=== PATIENT | female | born 1985 | race Caucasian/White ===

== ENCOUNTER → 2018-05-14 | Outpatient (CLI) | payer MEDICAID ==
--- NOTE | 2018-05-19 21:54 | HM ---
HOLTER MONITOR REPORT DATE OF SERVICE: May 14, 2018. INDICATION: Chest palpitation. REFERRING: Dr. Stein. CLINICAL INFORMATION: The patient was monitored for 24 hours. The baseline rhythm appeared to be a sinus mechanism with a minimum heart rate of 66 beats per minute, max heart rate 157 beats per minute and average heart rate of 89 beats per minute. Ventricular ectopic events were presented in less than 1% of the total beats count. Supraventricular ectopic events were present also in 1% of the total beats count. No evidence of any advanced AV block. No evidence of any sinus pause or sinus arrest. The patient had 1 period of sinus tachycardia with heart rate of 150 beats per minute. CONCLUSION: 1. Sinus rhythm as a baseline mechanism. 2. Rare ventricular ectopic events. 3. Rare supraventricular ectopic events. 4. There is no evidence of any tachy or bradyarrhythmia noted. 5. There is no evidence of any advanced atrioventricular block noted. 6. There is no evidence of any sinus pause or sinus arrest. 7. The patient did have episodes of sinus tachycardia. 8. The patient did report multiple symptoms, including shortness of breath, dizziness, lightheadedness, chest pressure, as well as aching in the chest and the symptoms were associated with normal sinus mechanism as well as premature ventricular contractions. MMODL / IJN: [id number] /
== END | disposition home or self-care (01) ==
LOC: MERGE 05-12 12:30 → RADECHMAIN 12:38
PROVIDERS: ATTEND Obstetrics & Gynecology Obstetrics
DX: R06.02 Shortness of breath (principal); R00.0 Tachycardia, unspecified; R42 Dizziness and giddiness; R51 Headache; R07.89 Other chest pain
CPT/HCPCS: 93225; 93226

== ENCOUNTER 2018-05-28 21:15 | Outpatient (CLI) | payer MEDICAID ==
[2018-05-28 21:40] LABS: Glucose,Whole Blood 93 mg/dL (75-99)
[2018-05-28] MEDS ORDERED: ACETAMINOPHEN TAB 500 MG TAB PO STA (22:40)
[2018-05-28 23:24] VITALS: BP 144/77; PULSE 100; RESP 16; TEMP 98.4
--- NOTE | 2018-06-19 08:29 | P.MSEPDOC ---
Presenting Problems - Arrival Data Date of Arrival on Unit: 05/28/18 Time of Arrival on Unit: 21:25 Mode of Transport: Wheelchair - Complaint OB-Reason for Admission/Chief Complaint: Acute Nausea/Vomiting, Headache, Dizziness Comment: Pt presents to triage after calling Dr Willis with complaints of headache. migrane like, Nausea, extreme dizziness and generally not feeling well off and on a. couple of months but much worse now Medical History - Information : 3 Para: 2 Term: 11 : 1 Abortions: Spontaneous or Elective: 0 Number of Living Children: 2 - Gestational Age Gestational Age by RUTH (wks/days): 31 Weeks and 1 Days - History Complications: GDM, Prior Review of Systems - Review of Systems Constitutional: No problems Breast: No problems ENT: No problems Cardiovascular: No problems Respiratory: No problems Gastrointestinal: No problems Genitourinary: No problems Musculoskeletal: No problems Neurological: Dizziness Skin: No problems Comment: facial flushing noted. pt c/o dizziness and headache that has been ongoing for several weeks. was started on procardia yesterday due to contractions while working. blood sugar 93 at this time. states headache is better now at 4 but was as high as 8 earlier. Vital Signs - Temperature Temperature: 98.4 F Temperature Source: Oral - Pulse Right Radial Pulse Rate: 100 Pulse Assessment Method: Automatic Cuff - Respirations Respiratory Rate: 16 Oxygen Delivery Method: Room Air - Blood Pressure Right Arm Blood Pressure: 144/77 Blood Pressure Mean: 99 Blood Pressure Source: Automatic Cuff - Comment Vital Signs Comment: initial bp while pt teary and upset. repeated as follows 127 /61 mmHg. 05/28/2018 21:37 P: 90 bpm. 05/28/2018 21:38 accucheck 93. 21:52 BP: 118 /57 mmHg. BP: 113 /63 mmHg. 05/28/2018 22:09 P: 86 bpm. 05/28/2018 22:22 BP: 116 /61 mmHg. 05/28/2018 22:22 P: 93 bpm. 2017 22:37 BP: 106 /59 mmHg Medical Screen Scoring (Pre) - Cervical Exam Dilation: 0 cm = 0 - Uterine Contractions Frequency: > 5 minutes apart = 1 Duration: N/A Intensity: N/A - Maternal Vital Signs Maternal Temperature: N/A Maternal Blood Pressure: N/A Signs of Preeclampsia: Headache = 1, Nausea/Vomiting = 1 Maternal Respirations: N/A - Pain Assessment Pain Location and Character: Head Pain Scale Used: Numeric (1 - 10) Pain Intensity: 4 Pain Management Goal: 0 Pain Description: Aching Pain Frequency: off and on several days Pain Behavior: Crying - Maternal Trauma Maternal Trauma: N/A - Assessment Baseline FHR: 135 Heart Rate - NICHD Category: Category I (Normal) = 0 NST: Reactive Position: N/A - Total Score Total Score (Pre): 3 - Level of Risk Level of Risk: Low (0-5) Physician Notification (Pre) - Physician Notified Physician Notified Date: 05/28/18 Physician Notified Time: 22:00 Physician/Practitioner Notifed:: Dr Willis New Order Received: Yes (check cervix discharge if not dialated.) - Notification Comment Comment: cervix closed. dr willis updated again after vag exam due to increased mild irregular contractions noted. order to continue with discharge after pt takes tylenol and drinks some water Disposition - Disposition OB Disposition: Discharge to home, Written follow up instructions reviewed Discharge Date: 05/28/18 Discharge Time: 11:25 I agree with the RN Medical Screening Exam: Yes Risk & Benefit of care provided described in d/c instruction: Yes Diagnosis: RELATED CONDITIONS, UNSPECIFIED, THIRD TRIMESTER
== END 2018-05-28 23:25 | disposition home or self-care (01) ==
LOC: FBPOP 21:15
PROVIDERS: ATTEND Obstetrics & Gynecology
DX: O26.93 Pregnancy related conditions, unspecified, third trimester (principal); Z3A.31 31 weeks gestation of pregnancy
CPT/HCPCS: 59025; 99213

== ENCOUNTER 2018-07-22 05:54 | Inpatient (IN) | payer MEDICAID ==
[2018-07-22] MEDS ORDERED: METHYLERGONOVINE 0.2 MG/ML 1 ML AMP IM PRN (06:09)
[2018-07-22] MEDS ORDERED: CARBOPROST TROMETHAMINE 250 MCG/ML 1 ML AMP IM PRN (06:09)
[2018-07-22] MEDS ORDERED: OXYTOCIN 10 UNIT/ML 1 ML VIAL IM PRN (06:09)
[2018-07-22] MEDS ORDERED: TERBUTALINE 1 MG/ML VIAL SQ PRN (06:09)
[2018-07-22] MEDS ORDERED: LIDOCAINE 0.5% (PF) 5 MG/ML (50 ML SDV) SQ PRN (06:09)
[2018-07-22] MEDS ORDERED: OXYTOCIN 20 UNITS/1000 ML NS 1,000 ML IV SCH ×2 (06:15→17:00)
[2018-07-22 06:29] VITALS: BMI 28.8
[2018-07-22] MEDS: LACTATED RINGERS 1,000 ML IV SCH ×3 (06:35→22:19)
[2018-07-22 06:36] LABS: Basophils % (A) 0 %; Eosinophils % (A) 0 %; HCT 38.9 % (34.0-46.0); HGB 12.9 gm/dL (11.4-16.0); Lymphocytes # (A) 1.5 k/uL (1.0-4.8); Lymphocytes % (A) 17 %; MCH 27.8 pg (25.0-35.0); MCHC 33.1 g/dL (31.0-37.0); Mean Platelet Volume 6.4; Monocytes # (A) 0.5 k/uL (0-1.0); Monocytes % (A) 6 %; Neutrophils # (A) 6.6 k/uL (1.3-7.7); Neutrophils % (A) 75 %; Platelet Count 260 k/uL (150-450); RBC 4.63 m/uL (3.80-5.40); RDW 13.7 % (11.5-15.5); WBC 8.8 k/uL (3.8-10.6)
[2018-07-22 06:40] LABS: Glucose,Whole Blood 97 mg/dL (75-99)
--- NOTE | 2018-07-22 08:25 | P.HPOB ---
History of Present Illness H&P Date: 07/22/18 Chief Complaint: IUP at 39-0/7 weeks, gestational diabetes This is a 33-year-old 3 para 2001 at 39-0/7 weeks that presents for elective induction of labor. is incompetent by gestational diabetes with good blood sugar control. Patient notes occasional contractions this morning denies vaginal bleeding and notes good movement. She denies concerns. Next On blood work Blood type A+, rubella immune, RPR nonreactive, hepatitis B surface antigen negative, HIV negative, group beta strep negative. She has been receiving routine care with myself since first trimester. Review of Systems Constitutional: Denies chills, Denies fatigue, Denies fever Cardiovascular: Reports leg edema, Denies chest pain Respiratory: Denies cough, Denies dyspnea Gastrointestinal: Denies constipation, Denies diarrhea Genitourinary: Reports Past Medical History Additional Past Medical History / Comment(s): Gestational Diabetes, meningitis in 2003 History of Any Multi-Drug Resistant Organisms: None Reported Past Surgical History: No Surgical Hx Reported Past Anesthesia/Blood Transfusion Reactions: No Reported Reaction Past Psychological History: No Psychological Hx Reported Smoking Status: Never smoker Past Alcohol Use History: None Reported Past Drug Use History: None Reported - Past Family History Mother Family Medical History: No Reported History Medications and Allergies Home Medications Medication Instructions Recorded Confirmed Type 78/Iron/Folate 1/Dha 1 tab PO DAILY 05/28/18 07/22/18 History [Prenate Dha Softgel] Allergies Allergy/AdvReac Type Severity Reaction Status Date / Time No Known Allergies Allergy Verified 07/22/18 06:08 Exam Osteopathic Statement: *. No significant issues noted on an osteopathic structural exam other than those noted in the History and Physical/Consult. Vital Signs Temp Pulse Resp BP 07/22/18 06:03 97.7 F 89 16 124/71 Intake and Output 07/21/18 07/22/18 07/22/18 22:59 06:59 14:59 Other: Weight 76.204 kg - OBG Physical Exam Abdomen: Gravid and appropriate for gestational age Cervix: 3/50/-2 amniotomy performed and clear fluid was obtained. Uterus: enlarged Anus/Rectum: normal perianal skin Results Result Diagrams: 07/22/18 06:25 Assessment and Plan (1) Term Current Visit: Yes Status: Acute Code(s): Z34.80 - ENCOUNTER FOR SUPRVSN OF NORMAL , UNSP TRIMESTER SNOMED Code(s): 22065198 (2) Gestational diabetes Current Visit: Yes Status: Acute Code(s): O24.419 - GESTATIONAL DIABETES MELLITUS IN , UNSP CONTROL SNOMED Code(s): 29946008 Plan: We'll admit to labor and delivery for Pitocin induction of labor. Patient declines epidural at this time. Anticipate spontaneous vaginal delivery later today.
[2018-07-22 13:59] LABS: Hemoglobin A1C 4.9 % (4.0-6.0)
[2018-07-22] MEDS ORDERED: diphenhydrAMINE 50 MG/ML 1 ML VIAL IVP PRN ×2 (16:59)
[2018-07-22] MEDS ORDERED: HYDROCORTISONE 2.5% RECTAL CREAM 30 GM TUBE RECTAL PRN (16:59)
[2018-07-22] MEDS ORDERED: diphenhydrAMINE 50 MG CAP PO PRN (16:59)
[2018-07-22] MEDS ORDERED: SIMETHICONE 80 MG CHEWABLE PO PRN (16:59)
[2018-07-22] MEDS ORDERED: BENZOCAINE/MENTHOL SPRAY 1 GM/SPRAY AEROSOL TOPICAL PRN (16:59)
[2018-07-22] MEDS ORDERED: LANOLIN CREAM 5 GM TUBE TOPICAL PRN (16:59)
[2018-07-22] MEDS ORDERED: WITCH HAZEL 1 EACH MED..PAD TOPICAL PRN (16:59)
[2018-07-22] MEDS ORDERED: ZOLPIDEM 5 MG TAB PO PRN (16:59)
[2018-07-22] MEDS ORDERED: diphenhydrAMINE 25 MG CAP PO PRN (16:59)
--- NOTE | 2018-07-22 16:59 | P.PROBDLV ---
Vaginal Delivery Note - . Vaginal Delivery Note: This is a 33-year-old 3 para 2001 at 39-0/7 weeks that presented to labor and delivery for elective induction of labor. Patient struggled with pain throughout the and desired induction. She was known gestational diabetic diet controlled. Patient was admitted to labor and delivery and Pitocin induction of labor was begun. Amniotomy was performed and clear fluid was obtained. Patient progressed through labor eventually becoming complete and had a normal spontaneous vaginal delivery of a viable female infant, a loose nuchal cord was noted and the infant was delivered through this cord. time noted to be 1640, weight of 6 lbs. 15 oz. with Apgars of 9 and 9 at one and 5 minutes respectively. The placenta was delivered spontaneously intact with a three-vessel cord. Patient did sustain a first-degree vaginal tear on inspection the patient's vaginal vault. This was repaired in the usual fashion after being injected with lidocaine. A 3-0 Rapide was used for this repair. Patient's uterus was noted to be firm and below the umbilicus after delivery. Bleeding was normal in nature. Estimated blood loss for the delivery was 200 mL. Patient and infant tolerated delivery well and are resting comfortably
[2018-07-22] MEDS ORDERED: ACETAMINOPHEN IV (For NPO) 1,000 MG in EMPTY BAG 1 BAG IVPB STA (17:06)
[2018-07-22] MEDS: SENNOSIDES-DOCUSATE SODIUM 1 EACH TAB PO SCH (20:22)
[2018-07-22] MEDS: IBUPROFEN 600 MG TAB PO PRN (22:52)
[2018-07-23] MEDS: ACETAMINOPHEN TAB 325 MG TAB PO PRN ×3 (04:15→17:58)
[2018-07-23] MEDS: IBUPROFEN 600 MG TAB PO PRN ×2 (06:50→13:43)
[2018-07-23] MEDS: SENNOSIDES-DOCUSATE SODIUM 1 EACH TAB PO SCH (08:00)
--- NOTE | 2018-07-23 08:25 | P.DS ---
Providers Date of admission: 07/22/18 05:54 Expected date of discharge: 07/23/18 Attending physician: Laxmi Stein Primary care physician: Stated None - Discharge Diagnosis(es) (1) Term Current Visit: Yes Status: Acute (2) Gestational diabetes Current Visit: Yes Status: Acute (3) Status post vaginal delivery Current Visit: Yes Status: Acute Hospital Course: This is a 33-year-old 3 para 2001 at 39-0/7 weeks presented yesterday for elective induction of labor. Patient had known gestational diabetes which was well-controlled with diet. Patient was admitted Pitocin induction of labor was begun patient progressed through labor amniotomy was eventually performed yielding clear fluid. Epidural was declined. Patient progressed to complete and had a normal spontaneous vaginal delivery of a viable female Mary, with weight of 6-15 at 1640 with Apgars of 9 and 9 at one and 5 metastases respectively. Patient's course has been uneventful. She is ambulating and voiding without difficulty. She is breast-feeding. She is tolerating a regular diet without nausea or vomiting. She is doing well and wishes discharge home today. Patient Condition at Discharge: Good Plan - Discharge Summary New Discharge Prescriptions: No Action 78/Iron/Folate 1/Dha [Prenate Dha Softgel] 1 tab PO DAILY Discharge Medication List 78/Iron/Folate 1/Dha [Prenate Dha Softgel] 1 tab PO DAILY 05/28/18 [ History] Follow up Appointment(s)/Referral(s): Laxmi Stein DO [Doctor of Osteopathic Medicine] - 4 Weeks Patient Instructions/Handouts: Vaginal Delivery (DC), Vaginal Delivery (GEN) Discharge Disposition: HOME SELF-CARE
[2018-07-23] MEDS ORDERED: PRENATAL VIT-IRON-FOLIC ACID 1 EACH CAP PO SCH (09:00)
[2018-07-23 11:17] VITALS: RESP 18
[2018-07-23 15:53] VITALS: BP 106/97; PULSE 66; TEMP 98
== END 2018-07-23 19:25 | disposition home or self-care (01) | DRG 807 ==
LOC: 4FBP 05:54
PROVIDERS: ADMIT Obstetrics & Gynecology Obstetrics; ATTEND Obstetrics & Gynecology Obstetrics
PROC: 10E0XZZ Delivery of Products of Conception, External Approach (ICD-10-PCS; principal; 2018-07-22)
PROC: 0HQ9XZZ Repair Perineum Skin, External Approach (ICD-10-PCS; 2018-07-22)
PROC: 3E033VJ Introduction of Other Hormone into Peripheral Vein, Percutaneous Approach (ICD-10-PCS; 2018-07-22)
PROC: 10907ZC Drainage of Amniotic Fluid, Therapeutic from Products of Conception, Via Natural or Artificial Opening (ICD-10-PCS; 2018-07-22)
DX: O24.420 Gestational diabetes mellitus in childbirth, diet controlled (principal); Z37.0 Single live birth; O69.81X0 Labor and delivery complicated by cord around neck, without compression, not applicable or unspecified; O70.0 First degree perineal laceration during delivery; Z86.61 Personal history of infections of the central nervous system; Z3A.39 39 weeks gestation of pregnancy
CPT/HCPCS: 83036; 85025; 86850; 86900; 86901

== ENCOUNTER → 2020-10-31 | Outpatient (CLI) | payer MEDICAID ==
--- NOTE | 2020-11-01 11:11 | XR ---
Lateral shoulders HISTORY: Pain 3 views of each shoulder are submitted Bone mineralization, joint spaces and alignment are maintained. No fracture or dislocation. Lung apic es are unremarkable. IMPRESSION: Normal shoulders.
--- NOTE | 2020-11-01 11:14 | XR ---
Bilateral hips HISTORY: Pain 2 views of each hip are submitted. Bone mineralization, joint spaces and alignment are maintained. No fracture or dislocation. IMPRESSION: Normal hips.
--- NOTE | 2020-11-01 11:16 | XR ---
Two-view spine HISTORY: Pain Frontal lateral views of the cervical, thoracic, lumbar spine submitted on a total of 9 images Reversal the normal cervical lordosis is present. Prevertebral soft tissues are normal. Spondylosis i s present at C6-7 with some associated loss of disc height. Scoliotic curvature is S-shaped within th e thoracic lumbar region. Cervical, thoracic, lumbar vertebral bodies show preserved height and bone mineralization. No evident paraspinal mass. IMPRESSION: Mild degenerative disc disease, S-shaped thoracic lumbar scoliosis.
== END | disposition home or self-care (01) ==
LOC: RADXRMAIN 15:05
PROVIDERS: ATTEND Family Medicine
DX: M51.36 Other intervertebral disc degeneration, lumbar region (principal); M41.85 Other forms of scoliosis, thoracolumbar region; M25.551 Pain in right hip; M25.552 Pain in left hip; M25.511 Pain in right shoulder; M25.512 Pain in left shoulder
CPT/HCPCS: 72082; 73521

== ENCOUNTER 2020-11-30 07:48 | Day surgery (SDC) | payer MEDICAID ==
[2020-11-29 09:09] VITALS: BMI 27.4
[~2020-11-30 07:48] MED LIST: LACTATED RINGERS 1,000 ML IV SCH
[2020-11-30 08:25] VITALS: TEMP 97
[2020-11-30] MEDS ORDERED: LIDOCAINE 1% (10MG/ML) FOR IV START INTRADERMA ONE (08:27)
[2020-11-30] MEDS ORDERED: PROPOFOL 10 MG/ML 20 ML VIAL IV ONE (08:59)
[2020-11-30] MEDS ORDERED: LIDOCAINE 1% INJ 10MG/ML (20 ML MDV) ONE (08:59)
[2020-11-30 09:39] VITALS: RESP 16
--- NOTE | 2020-11-30 09:41 | P.PCN ---
Date of Procedure: 11/30/20 Description of Procedure: BRIEF HISTORY: Patient is a 35-year-old female presenting for colonoscopy for evaluation of GI bleed. The patient reports having episodes of rectal bleeding with diarrhea over the past few months. This is improved over the past few weeks with more blood per rectum. She denies any family history of inflammatory bowel disease or colon cancer. No prior episodes of similar complaints. She did have some abdominal cramping in association with her symptoms. PROCEDURE PERFORMED: Colonoscopy with biopsy. PREOPERATIVE DIAGNOSIS: GI bleed, change in bowel habits, blood per rectum. ESTIMATED BLOOD LOSS: Minimal. IV sedation per Anesthesia. PROCEDURE: After informed consent was obtained, the patient, was brought into the endoscopy unit. IV sedation was administered by Anesthesia under continuous monitoring. Digital rectal examination was normal. Initially the Olympus CF-190 flexible video colonoscope was then inserted in the rectum, gradually advanced into the cecum without any difficulty. Careful examination was performed as the scope was gradually being withdrawn. Ileocecal valve and the appendiceal orifice were visualized and appeared normal. Prep was excellent. Mucosa of the cecum, ascending colon, transverse colon, descending colon, sigmoid colon, and rectum appeared normal except for some patchy erythema in the rectum with some superficial erosions suggestive of mild proctitis with biopsies taken of normal- appearing terminal ileum, right colon, left colon, transverse colon and rectum. Retroflexion was performed in the rectum and no lesions were seen, low-grade internal hemorrhoids. The patient tolerated the procedure well. IMPRESSION: Normal-appearing colon from rectum to cecum and normal appearing terminal ileum, except for some mild punctate erythema and erosions in the rectum unclear if this is related to prep, resolving colitis or inflammatory process with random biopsies taken of the terminal ileum, right colon, transverse colon, left colon and rectum. Internal hemorrhoids. RECOMMENDATIONS: Findings of this examination were discussed with the patient and her family. Okay to resume diet. Okay to resume medication. Await pathology from biopsies. Patient should follow-up in the GI clinic in the next 1-2 weeks for results of biopsies.
[2020-11-30 10:00] VITALS: BP 95/63; PULSE 61
== END 2020-11-30 10:40 | disposition home or self-care (01) ==
LOC: ORWHC2ENDO 07:48
PROVIDERS: ATTEND Internal Medicine
DX: K62.6 Ulcer of anus and rectum (principal); K64.8 Other hemorrhoids; K62.89 Other specified diseases of anus and rectum; Z90.89 Acquired absence of other organs; Z86.61 Personal history of infections of the central nervous system
CPT/HCPCS: 81025; 88305; 45380; J2001; J2704

== ENCOUNTER → 2021-03-20 | Outpatient (CLI) | payer MEDICAID ==
[2021-03-20 14:33] LABS: Glucose, 2 Hour PP 119 mg/dL
[2021-03-20 19:14] LABS: Basophils # (A) 0.02 X 10*3/uL (0.00-0.10); Basophils % (A) 0.2 %; Eosinophils # (A) 0.06 X 10*3/uL (0.04-0.35); Eosinophils % (A) 0.7 %; HCT 43.7 % (37.2-46.3); HGB 14.2 g/dL (12.0-15.0); Lymphocytes # (A) 2.03 X 10*3/uL (0.90-5.00); Lymphocytes % (A) 22.2 %; MCH 29.7 pg (27.0-32.0); MCHC 32.5 g/dL (32.0-37.0); MCV 91.4 fL (80.0-97.0); Mean Platelet Volume 9.8 fL (9.5-12.2); Monocytes # (A) 0.66 X 10*3/uL (0.20-1.00); Monocytes % (A) 7.2 %; Neutrophils # (A) 6.35 X 10*3/uL (1.80-7.70); Neutrophils % (A) 69.5 %; Platelet Count 346 X 10*3/uL (140-440); RBC 4.78 X 10*6/uL (4.10-5.20); RDW 12.7 % (11.5-14.5); WBC 9.14 X 10*3/uL (4.50-10.00)
[2021-03-20 22:54] LABS: Progesterone 13.3 ng/mL
[2021-03-20 22:55] LABS: DHEA Sulfate 225.5 ug/dL (26.0-430.0)
[2021-03-20 22:57] LABS: Estradiol 166.4 pg/mL
[2021-03-20 23:18] LABS: ALT 18 U/L (8-44); AST 17 U/L (13-35); African American GFR (CKD) 110.7 (60.0-200.0); Albumin/Globulin Ratio 2.13 (1.60-3.17); Alkaline Phosphatase 50 U/L (41-126); BUN/Creat Ratio 21.25 Ratio (12.00-20.00); Calcium 9.3 mg/dL (8.7-10.3); Carbon Dioxide 24.4 mmol/L (21.6-31.8); Chloride 107 mmol/L (96-109); Folate, Serum >24.0 ng/mL; Globulin 2.3 g/dL (1.6-3.3); Glucose 96 mg/dL (70-110); Non-African American GFR(CKD) 95.5 (60.0-200.0); Sodium 141 mmol/L (135-145); Total Protein 7.2 g/dL (6.2-8.2)
[2021-03-24 11:03] LABS: Zinc, RBC 10.8 mg/L (9.0-14.7)
== END | disposition home or self-care (01) ==
LOC: LABWHC1 11:32
PROVIDERS: ATTEND Dietitian, Registered
DX: Z13.1 Encounter for screening for diabetes mellitus (principal); N95.1 Menopausal and female climacteric states; E55.9 Vitamin D deficiency, unspecified; E53.1 Pyridoxine deficiency; E61.2 Magnesium deficiency; E60 Dietary zinc deficiency; E08.9 Diabetes mellitus due to underlying condition without complications; E03.9 Hypothyroidism, unspecified; E06.3 Autoimmune thyroiditis; E27.40 Unspecified adrenocortical insufficiency; E72.19 Other disorders of sulfur-bearing amino-acid metabolism; D89.89 Other specified disorders involving the immune mechanism, not elsewhere classified; D51.9 Vitamin B12 deficiency anemia, unspecified; D52.9 Folate deficiency anemia, unspecified; R53.82 Chronic fatigue, unspecified; R77.9 Abnormality of plasma protein, unspecified
CPT/HCPCS: 36415; 80053; 82306; 82607; 82627; 82670; 82746; 82947; 83090; 83735; 84140; 84144; 84207; 84270; 84403; 84443; 84482; 84630; 85025; 86141

== ENCOUNTER → 2021-04-04 | Outpatient (CLI) | payer MEDICAID ==
--- NOTE | 2021-04-05 08:13 | MR ---
EXAMINATION TYPE: MR thoracic spine wo/w con DATE OF EXAM: 04/04/2021 COMPARISON: NONE HISTORY: 35-year-old female M5 4.6, severe mid-thoracic pain for months, spasms, and pressure for 1 y ear. Technique: Multiplanar, multisequence images of the thoracic spine were obtained before and after adm inistration of 7 mL intravenous Gadavist gadolinium contrast. FINDINGS: There is a levoconvex curvature centered along the upper third thoracic spine. Otherwise, alignment i s maintained. Vertebral body heights are preserved. Mild diminished marrow signal throughout compatible with prominent red marrow given patient's age. Seen on the counting sequence, there is a focal left paracentral disc herniation at C5-C6 which focal ly indents the left ventral cord but does not cause significant spinal canal stenosis. There are a couple levels of tiny posterior protrusion such as at T2-T3, T3-T4, and T5-T6 which do no t contribute any significant spinal canal stenosis. No significant neuroforaminal stenosis is seen. The thoracic spinal cord shows normal course, caliber, and signal intensity. No abnormal enhancement within the spinal canal. IMPRESSION: 1. A mild levoconvex scoliosis centered along the upper third thoracic spine. 2. Incidental, sizable left paracentral disc herniation at C5-C6 with focally indents the left ventra l cord but does not cause significant spinal canal stenosis. 3. A few additional levels of tiny posterior disc protrusions. No sizable disc herniation seen in the thoracic spine. No significant neuroforaminal stenosis.
== END | disposition home or self-care (01) ==
LOC: RADMRIMAIN 14:41
PROVIDERS: ATTEND Family Medicine
DX: M51.24 Other intervertebral disc displacement, thoracic region (principal); M41.84 Other forms of scoliosis, thoracic region; M50.222 Other cervical disc displacement at C5-C6 level
CPT/HCPCS: 72157; A9585

== ENCOUNTER → 2021-09-24 | Outpatient (CLI) | payer MEDICAID ==
[2021-09-24 15:00] LABS: Basophils # (A) 0.03 X 10*3/uL (0.00-0.10); Basophils % (A) 0.5 %; Eosinophils # (A) 0.06 X 10*3/uL (0.04-0.35); Eosinophils % (A) 1.1 %; HCT 39.4 % (37.2-46.3); HGB 12.6 g/dL (12.0-15.0); Lymphocytes # (A) 1.89 X 10*3/uL (0.90-5.00); Lymphocytes % (A) 33.2 %; MCH 29.6 pg (27.0-32.0); MCV 92.5 fL (80.0-97.0); Mean Platelet Volume 9.1 fL (9.5-12.2); Monocytes # (A) 0.31 X 10*3/uL (0.20-1.00); Monocytes % (A) 5.4 %; Neutrophils # (A) 3.41 X 10*3/uL (1.80-7.70); Neutrophils % (A) 59.8 %; Platelet Count 331 X 10*3/uL (140-440); RBC 4.26 X 10*6/uL (4.10-5.20); RDW 11.9 % (11.5-14.5)
[2021-09-24 16:41] LABS: % Iron Saturation 20.61 (12.00-45.00); ALT 65 U/L (8-44); AST 65 U/L (13-35); African American GFR (CKD) 130.9 (60.0-200.0); Albumin 4.6 g/dL (3.8-4.9); Albumin/Globulin Ratio 2.14 (1.60-3.17); Alkaline Phosphatase 38 U/L (41-126); BUN/Creat Ratio 17.71 Ratio (12.00-20.00); Blood Urea Nitrogen 11.9 mg/dL (9.0-27.0); Calcium 9.4 mg/dL (8.7-10.3); Carbon Dioxide 20.7 mmol/L (20.0-27.5); Chloride 103 mmol/L (96-109); Ferritin 63.3 ng/mL (10.0-291.0); Globulin 2.2 g/dL (1.6-3.3); Glucose 84 mg/dL (70-110); Iron 76 ug/dL (50-170); Potassium 3.9 mmol/L (3.5-5.5); Sodium 138 mmol/L (135-145); Total Iron Binding Capacity 367 ug/dL (228-460); Total Protein 6.8 g/dL (6.2-8.2)
[2021-09-24 17:04] LABS: C Reactive Protein, High Sens <0.150 mg/L (0.000-3.000); Folate, Serum >20.00 ng/mL (4.40-31.00)
[2021-09-25 12:11] LABS: Zinc, Serum 78 ug/dL (60-130)
== END | disposition home or self-care (01) ==
LOC: LABWHC1 09:39
PROVIDERS: ATTEND Dietitian, Registered
DX: R53.82 Chronic fatigue, unspecified (principal); R79.82 Elevated C-reactive protein (CRP); M35.9 Systemic involvement of connective tissue, unspecified; D50.9 Iron deficiency anemia, unspecified; E03.9 Hypothyroidism, unspecified; E06.3 Autoimmune thyroiditis; D51.9 Vitamin B12 deficiency anemia, unspecified; D52.9 Folate deficiency anemia, unspecified; E55.9 Vitamin D deficiency, unspecified; E53.1 Pyridoxine deficiency; E61.2 Magnesium deficiency
CPT/HCPCS: 36415; 80053; 82306; 82607; 82728; 82746; 83090; 83540; 83550; 83735; 84207; 84443; 84482; 84630; 85025; 86038; 86141

== ENCOUNTER → 2021-12-19 | Outpatient (CLI) | payer MEDICAID ==
[2021-12-20 01:00] LABS: ALT 31 U/L (8-44); AST 22 U/L (13-35); African American GFR (CKD) 129.2 (60.0-200.0); Albumin 4.8 g/dL (3.8-4.9); Albumin/Globulin Ratio 1.85 (1.60-3.17); Alkaline Phosphatase 41 U/L (41-126); BUN/Creat Ratio 14.29 Ratio (12.00-20.00); Calcium 9.5 mg/dL (8.7-10.3); Carbon Dioxide 23.1 mmol/L (20.0-27.5); Chloride 99 mmol/L (96-109); Globulin 2.6 g/dL (1.6-3.3); Glucose 86 mg/dL (70-110); Non-African American GFR(CKD) 111.5 (60.0-200.0); Potassium 4.3 mmol/L (3.5-5.5); Sodium 136 mmol/L (135-145); Total Bilirubin <0.15 mg/dL (0.30-1.20); Total Protein 7.4 g/dL (6.2-8.2)
== END | disposition home or self-care (01) ==
LOC: LABWHC1 15:39
PROVIDERS: ATTEND Dietitian, Registered
DX: R53.82 Chronic fatigue, unspecified (principal)
CPT/HCPCS: 36415; 80053

== ENCOUNTER 2023-12-16 15:31 | Observation (INO) | payer MEDICAID ==
--- NOTE | 2023-12-16 15:56 | ED ---
SOB HPI - General Chief Complaint: Shortness of Breath Stated Complaint: Cough,Back pain Time Seen by Provider: 12/16/23 15:37 Source: patient, RN notes reviewed Mode of arrival: ambulatory Limitations: no limitations - History of Present Illness Initial Comments: This is a 38-year-old female who presents to the emergency department for coughing and shortness of breath. States that she has been dealing with a cough since July 2023 that has just not gotten better. She then had influenza a couple of weeks ago, and she states that this made the cough worse and she has been unable to recover since. The cough was initially dry, and states that it is now productive. States that she also injured her ribs and back as a result of all of the coughing, which is making it hard to breathe and take a deep breath. This also makes it very painful to cough. She saw her primary care provider today, who recommended she go to the hospital for admission and management with IV antibiotics and steroids. She did also have a chest x-ray this morning. MD Complaint: shortness of breath, cough - Related Data Home Medications Medication Instructions Recorded Confirmed No Known Home Medications 11/29/20 11/29/20 Allergies Allergy/AdvReac Type Severity Reaction Status Date / Time No Known Allergies Allergy Verified 12/16/23 15:35 Review of Systems ROS Statement: Those systems with pertinent positive or pertinent negative responses have been documented in the HPI. ROS Other: All systems not noted in ROS Statement are negative. Past Medical History Additional Past Medical History / Comment(s): HAD SOME BLOOD AND MUCUS IN STOOL IN AUG/SEP AND ABD. PAIN. Gestational Diabetes, meningitis in 2003 History of Any Multi-Drug Resistant Organisms: None Reported Past Surgical History: No Surgical Hx Reported, Tonsillectomy Additional Past Surgical History / Comment(s): WISDOM TEETH REMOVED UNDER ANESTHESIA Past Anesthesia/Blood Transfusion Reactions: No Reported Reaction Past Psychological History: No Psychological Hx Reported Smoking Status: Never smoker Past Alcohol Use History: Occasional Past Drug Use History: None Reported - Past Family History Mother Family Medical History: Deep Vein Thrombosis (DVT) General Exam Limitations: no limitations General appearance: alert, in no apparent distress Head exam: Present: atraumatic, normocephalic, normal inspection Respiratory exam: Present: wheezes, rhonchi, decreased breath sounds, prolonged expiratory Cardiovascular Exam: Present: regular rate, normal rhythm, normal heart sounds. Absent: systolic murmur, diastolic murmur, rubs, gallop, clicks Neurological exam: Present: alert, oriented X3, CN II-XII intact Psychiatric exam: Present: normal affect, normal mood Skin exam: Present: warm, dry, intact, normal color. Absent: rash Course Vital Signs 12/16/23 12/16/23 12/16/23 15:32 18:48 18:54 Temperature 98.7 F Pulse Rate 90 90 90 Respiratory 18 22 22 Rate Blood Pressure 158/82 O2 Sat by Pulse 99 Oximetry 12/16/23 20:50 Temperature 98.7 F Pulse Rate 72 Respiratory 16 Rate Blood Pressure 110/71 O2 Sat by Pulse 98 Oximetry Medical Decision Making - Medical Decision Making This is a 38 year old female who presents to the emergency department for chest pain and shortness of breath. Was pt. sent in by a medical professional or institution? @ -Her PCP Did you speak to anyone other than the patient for history? @ -No Did you review nursing and triage notes? @ -Yes, and I agree, it is accurate with regards to the patient's symptoms. Were old charts reviewed? @ -Outpatient chest x-ray obtained this morning. This demonstrated strandy densities in the lower lungs suggestive of atelectasis without any focal consolidations. Differential Diagnosis? @ -Differential Cough: Influenza, Covid, RSV, croup, allergic rhinitis, GERD, pneumonia, bronchitis, COPD, viral pharyngitis, streptococcal pharyngitis, this is not meant to be an all-inclusive list. EKG interpreted by me (3pts min.)? @ -EKG interpreted by me demonstrating the following: Sinus rhythm. Ventricular rate 83 bpm, AK interval 179 ms, QRS duration 93 ms, QTc 414 ms. X-rays interpreted by me (1pt min.)? @ -Not obtained - done outpatient earlier today. CT interpreted by me (1pt min.)? @ -CTA of the chest obtained. My interpretation identifies no evidence of a pulmonary embolus. U/S interpreted by me (1pt. min.)? @ -Not obtained What testing was considered but not performed? (CT, X-rays, U/S, labs)? Why? @ -None What meds were considered but not given? Why? @ -None Did you discuss the management of the patient with other professionals? @ -Yes, Dr. Figueroa, who accepts the patient for admission. Did you reconcile home meds? @ -No Was smoking cessation discussed for >3mins.? @ -No Was critical care preformed (if so, how long)? @ -No Were there social determinants of health that impacted care today? How? (Homelessness, low income, unemployed, alcoholism, drug addiction, marquez sportation, low edu. Level, literacy, decrease access to med. care, penitentiary, rehab)? @ -No Was there de-escalation of care discussed even if they declined? (Discuss DNR or withdrawal of care, Hospice)? @ -No What co-morbidities impacted this encounter? (DM, HTN, Smoking, COPD, CAD, Cancer, CVA, Hep., AIDS, mental health diagnosis, sleep apnea, morbid obesity)? @ -None Was patient admitted / discharged? @ -Admitted. Lab work demonstrates leukocytosis and an elevated CRP of 2.3. D- dimer elevated at 0.61. Lab work was otherwise unremarkable. COVID, influenza, and RSV testing were negative. Chest x-ray obtained earlier today demonstrates atelectasis in the lower lobes without focal consolidation. CTA of the chest obtained due to the elevated d-dimer and the patient's symptoms. No evidence of a pulmonary embolus was identified. She was found to have trace bilateral pleural effusions. She did have improvement in coughing and breathing with the duoneb breathing treatment. Procalcitonin, sputum culture, and legionella testing ordered with results pending at the time of admission. Patient admitted to medicine for progressive chronic cough and shortness of breath. Undiagnosed new problem with uncertain prognosis? @ -None Drug Therapy requiring intensive monitoring for toxicity (Heparin, Nitro, Insulin, Cardizem)? @ -None Were any procedures done? @ -None Diagnosis/symptom? @ -Cough Acute, or Chronic, or Acute on Chronic? @ -Chronic Uncomplicated (without systemic symptoms) or Complicated (systemic symptoms)? @ -Complicated Side effects of treatment? @ -None Exacerbation, Progression, or Severe Exacerbation] @ -Not applicable Poses a threat to life or bodily function? @ -Yes Diagnosis/symptom? @ -DAPHNE, rib pain Acute, or Chronic, or Acute on Chronic? @ -Acute Uncomplicated (without systemic symptoms) or Complicated (systemic symptoms)? @ -Complicated Side effects of treatment? @ -None Exacerbation, Progression, or Severe Exacerbation] @ -Not applicable Poses a threat to life or bodily function? @ -Yes This case was discussed in detail with the attending ED physician, Dr. Ballesteros. Presentation, findings, and treatment plan discussed in detail as well. - Lab Data Result diagrams: 12/16/23 16:15 12/16/23 16:15 Lab Results 12/16/23 12/16/23 12/16/23 Range/Units 16:15 16:15 16:15 WBC 14.0 H (3.8-10.6) k/uL RBC 4.90 (3.80-5.40) m/uL Hgb 14.3 (11.4-16.0) gm/dL Hct 43.6 (34.0-46.0) % MCV 89.0 (80.0-100.0) fL MCH 29.2 (25.0-35.0) pg MCHC 32.8 (31.0-37.0) g/dL RDW 12.7 (11.5-15.5) % Plt Count 516 H (150-450) k/uL MPV 6.9 Neutrophils % 81 % Lymphocytes % 12 % Monocytes % 6 % Eosinophils % 0 % Basophils % 0 % Neutrophils # 11.4 H (1.3-7.7) k/uL Lymphocytes # 1.7 (1.0-4.8) k/uL Monocytes # 0.8 (0-1.0) k/uL Eosinophils # 0.1 (0-0.7) k/uL Basophils # 0.0 (0-0.2) k/uL PT 9.4 L (10.0-12.5) sec INR 0.8 (<1.2) APTT 25.1 (22.0-30.0) sec D-Dimer 0.61 H (<0.60) mg/L FEU Sodium 140 (137-145) mmol/L Potassium 5.1 (3.5-5.1) mmol/L Chloride 106 (98-107) mmol/L Carbon Dioxide 23 (22-30) mmol/L Anion Gap 11 mmol/L BUN 9 (7-17) mg/dL Creatinine 0.49 L (0.52-1.04) mg/dL Est GFR (CKD-EPI)AfAm >90 (>60 ml/min/1.73 sqM) Est GFR (CKD-EPI)NonAf >90 (>60 ml/min/1.73 sqM) Glucose 97 (74-99) mg/dL Plasma Lactic Acid Ty (0.7-2.0) mmol/L Calcium 9.8 (8.4-10.2) mg/dL Total Bilirubin 0.8 (0.2-1.3) mg/dL AST 39 H (14-36) U/L ALT 23 (4-34) U/L Alkaline Phosphatase 51 (38-126) U/L Troponin I (0.000-0.034) ng/mL C-Reactive Protein 2.3 H (<1.0) mg/dL NT-Pro-B Natriuret Pep 155 pg/mL Total Protein 8.4 H (6.3-8.2) g/dL Albumin 5.0 (3.5-5.0) g/dL Procalcitonin (0.02-0.09) ng/mL HCG, Qual Not Detected Influenza Type A (PCR) (Not Detectd) Influenza Type B (PCR) (Not Detectd) RSV (PCR) (Not Detectd) SARS-CoV-2 (PCR) (Not Detectd) 12/16/23 12/16/23 12/16/23 Range/Units 16:15 16:15 16:15 WBC (3.8-10.6) k/uL RBC (3.80-5.40) m/uL Hgb (11.4-16.0) gm/dL Hct (34.0-46.0) % MCV (80.0-100.0) fL MCH (25.0-35.0) pg MCHC (31.0-37.0) g/dL RDW (11.5-15.5) % Plt Count (150-450) k/uL MPV Neutrophils % % Lymphocytes % % Monocytes % % Eosinophils % % Basophils % % Neutrophils # (1.3-7.7) k/uL Lymphocytes # (1.0-4.8) k/uL Monocytes # (0-1.0) k/uL Eosinophils # (0-0.7) k/uL Basophils # (0-0.2) k/uL PT (10.0-12.5) sec INR (<1.2) APTT (22.0-30.0) sec D-Dimer (<0.60) mg/L FEU Sodium (137-145) mmol/L Potassium (3.5-5.1) mmol/L Chloride (98-107) mmol/L Carbon Dioxide (22-30) mmol/L Anion Gap mmol/L BUN (7-17) mg/dL Creatinine (0.52-1.04) mg/dL Est GFR (CKD-EPI)AfAm (>60 ml/min/1.73 sqM) Est GFR (CKD-EPI)NonAf (>60 ml/min/1.73 sqM) Glucose (74-99) mg/dL Plasma Lactic Acid Ty 1.5 (0.7-2.0) mmol/L Calcium (8.4-10.2) mg/dL Total Bilirubin (0.2-1.3) mg/dL AST (14-36) U/L ALT (4-34) U/L Alkaline Phosphatase (38-126) U/L Troponin I <0.012 (0.000-0.034) ng/mL C-Reactive Protein (<1.0) mg/dL NT-Pro-B Natriuret Pep pg/mL Total Protein (6.3-8.2) g/dL Albumin (3.5-5.0) g/dL Procalcitonin (0.02-0.09) ng/mL HCG, Qual Influenza Type A (PCR) Not Detected (Not Detectd) Influenza Type B (PCR) Not Detected (Not Detectd) RSV (PCR) Not Detected (Not Detectd) SARS-CoV-2 (PCR) Not Detected (Not Detectd) 12/16/23 Range/Units 16:15 WBC (3.8-10.6) k/uL RBC (3.80-5.40) m/uL Hgb (11.4-16.0) gm/dL Hct (34.0-46.0) % MCV (80.0-100.0) fL MCH (25.0-35.0) pg MCHC (31.0-37.0) g/dL RDW (11.5-15.5) % Plt Count (150-450) k/uL MPV Neutrophils % % Lymphocytes % % Monocytes % % Eosinophils % % Basophils % % Neutrophils # (1.3-7.7) k/uL Lymphocytes # (1.0-4.8) k/uL Monocytes # (0-1.0) k/uL Eosinophils # (0-0.7) k/uL Basophils # (0-0.2) k/uL PT (10.0-12.5) sec INR (<1.2) APTT (22.0-30.0) sec D-Dimer (<0.60) mg/L FEU Sodium (137-145) mmol/L Potassium (3.5-5.1) mmol/L Chloride (98-107) mmol/L Carbon Dioxide (22-30) mmol/L Anion Gap mmol/L BUN (7-17) mg/dL Creatinine (0.52-1.04) mg/dL Est GFR (CKD-EPI)AfAm (>60 ml/min/1.73 sqM) Est GFR (CKD-EPI)NonAf (>60 ml/min/1.73 sqM) Glucose (74-99) mg/dL Plasma Lactic Acid Ty (0.7-2.0) mmol/L Calcium (8.4-10.2) mg/dL Total Bilirubin (0.2-1.3) mg/dL AST (14-36) U/L ALT (4-34) U/L Alkaline Phosphatase (38-126) U/L Troponin I (0.000-0.034) ng/mL C-Reactive Protein (<1.0) mg/dL NT-Pro-B Natriuret Pep pg/mL Total Protein (6.3-8.2) g/dL Albumin (3.5-5.0) g/dL Procalcitonin 0.03 (0.02-0.09) ng/mL HCG, Qual Influenza Type A (PCR) (Not Detectd) Influenza Type B (PCR) (Not Detectd) RSV (PCR) (Not Detectd) SARS-CoV-2 (PCR) (Not Detectd) - Radiology Data Radiology results: report reviewed, image reviewed Disposition Clinical Impression: Chronic cough, Shortness of breath Disposition: ADMITTED IP TO THIS [facility] Time of Disposition: 19:56
[2023-12-16] MEDS: KETOROLAC 15 MG/ML 1 ML VIAL IVP STA ×2 (16:36→19:08)
[2023-12-16] MEDS: guaiFENesin-Coden 100-10MG/5ML 10 ML CUP PO STA (16:37)
[2023-12-16] MEDS: MORPHINE SULFATE 2 MG/ML SYRINGE IVP STA (16:37)
[2023-12-16 17:05] LABS: Basophils % (A) 0 %; Eosinophils # (A) 0.1 k/uL (0-0.7); Eosinophils % (A) 0 %; HCT 43.6 % (34.0-46.0); HGB 14.3 gm/dL (11.4-16.0); Lymphocytes # (A) 1.7 k/uL (1.0-4.8); Lymphocytes % (A) 12 %; MCH 29.2 pg (25.0-35.0); MCHC 32.8 g/dL (31.0-37.0); Mean Platelet Volume 6.9; Monocytes # (A) 0.8 k/uL (0-1.0); Monocytes % (A) 6 %; Neutrophils # (A) 11.4 k/uL (1.3-7.7); Neutrophils % (A) 81 %; Platelet Count 516 k/uL (150-450); RDW 12.7 % (11.5-15.5)
[2023-12-16 17:19] LABS: HCG,Qualitative Serum Not Detected
[2023-12-16 17:20] LABS: INR 0.8 (<1.2); Partial Thromboplastin Time 25.1 sec (22.0-30.0); Prothrombin Time 9.4 sec (10.0-12.5)
[2023-12-16 17:25] LABS: ALT 23 U/L (4-34); AST 39 U/L (14-36); African American GFR (CKD) >90 (>60 ml/min/1.73 sqM); Alkaline Phosphatase 51 U/L (38-126); Anion Gap 11 mmol/L; Blood Urea Nitrogen 9 mg/dL (7-17); C Reactive Protein 2.3 mg/dL (<1.0); Calcium 9.8 mg/dL (8.4-10.2); Carbon Dioxide 23 mmol/L (22-30); Chloride 106 mmol/L (98-107); Glucose 97 mg/dL (74-99); Non-African American GFR(CKD) >90 (>60 ml/min/1.73 sqM); Sodium 140 mmol/L (137-145); Total Bilirubin 0.8 mg/dL (0.2-1.3); Total Protein 8.4 g/dL (6.3-8.2)
[2023-12-16 17:28] LABS: Potassium 5.1 mmol/L (3.5-5.1)
[2023-12-16 17:31] LABS: NT-Pro-B-Type Natriuretic Pept 155 pg/mL
[2023-12-16] MEDS: IPRATROPIUM-ALBUTEROL 3 ML NEB INHALATION STA (18:47)
--- NOTE | 2023-12-16 19:02 | CT ---
EXAMINATION TYPE: CT chest angio for PE CT DLP: 343.4 mGycm, Automated exposure control for dose reduction was used. DATE OF EXAM: 12/16/2023 6:46 PM COMPARISON: Chest radiograph from same day. CLINICAL INDICATION:Female, 38 years old with history of DAPHNE, elevated d-dimer; cough/pain TECHNIQUE/CONTRAST: CTA scan of the thorax is performed with IV Contrast, patient injected with 100 ml mL of Isovue 300, MIP images are created and reviewed these are created on a separate workstation.. FINDINGS: Pulmonary Artery: There is no evidence for a filling defect within the pulmonary vasculature to sugge st acute pulmonary embolism. The pulmonary artery is of normal size. Lungs/Pleura: No evidence of focal consolidation or pneumothorax. Trace bilateral pleural effusions. Airway: Large airways are patent. Heart: Heart is within normal limits for size. Vasculature: No evidence of aortic aneurysm. Mediastinum: No gross evidence of adenopathy. Musculoskeletal: No acute osseous abnormalities Soft Tissues: Unremarkable. Lower neck: No significant findings. Upper Abdomen: No significant findings. IMPRESSION: 1. No evidence of pulmonary embolism. 2. Trace bilateral pleural effusions.
[2023-12-16] MEDS: ACETAMINOPHEN TAB 500 MG TAB PO STA (19:09)
[2023-12-16] MEDS ORDERED: MORPHINE SULFATE 4 MG/ML SYRINGE IV PRN (19:58)
[2023-12-16] MEDS ORDERED: ONDANSETRON 4 MG/2 ML VIAL IVP PRN (19:58)
[2023-12-16] MEDS ORDERED: NALOXONE 0.4 MG/ML 1 ML VIAL IV PRN (19:58)
[2023-12-16] MEDS: methylPREDNISolone SOD SUCCI 40 MG/ML 1 ML VIAL IV SCH (22:19)
[2023-12-16] MEDS: KETOROLAC 15 MG/ML 1 ML VIAL IVP PRN (22:33)
[2023-12-17] MEDS: ACETAMINOPHEN TAB 325 MG TAB PO PRN (02:13)
[2023-12-17] MEDS: ENOXAPARIN 40 MG/0.4 ML SYRINGE SQ SCH (13:04)
[2023-12-17] MEDS: guaiFENesin 600 MG TABLET.ER PO SCH (13:05)
[2023-12-17] MEDS: ALBUTEROL NEBULIZED 2.5 MG/3 ML INHALATION PRN (15:47)
--- NOTE | 2023-12-17 16:26 | P.HPIM ---
History of Present Illness H&P Date: 12/17/23 Chief Complaint: Short of breath cough This is a pleasant 38-year-old patient who follows with Dr. Pepe Solomon. 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 Patient does get seasonal allergies. Since fall of last year patient had at least 4-5 bouts of respiratory infections. What she describes as sinus infection waiting nose fever chills nausea vomiting at times. Also her preschool child comes back from school however brings in infection. Recently her child had influenza B. Patient currently has a cough. Which is productive but because of pain in the sides she is a swallowing the same. No fever no chills. Feels tired. She was sent in by her family doctor Dr. Pepe Solomon. 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 Has 4 children from the age of 5-20. Alcohol occasionally. No smoking. Physical examination: VITAL SIGNS: 97.7, 75, 19, 1 one 1 x 72, 97% room air GENERAL: BMI 29, sitting on bed awake slightly tired. EYES: Pupils equal. Conjunctiva jennifer l. HEENT: External appearance of nose and ears normal, oral cavity grossly normal. NECK: JVD not raised; masses not palpable. HEART: First and second heart sounds are normal; no edema. LUNGS: Respiratory rate normal; basal crackles. ABDOMEN: Soft, nontender, liver spleen not palpable, no masses palpable. PSYCH: Alert and oriented x3; mood and affect n slightly anxious l. MUSCULOSKELETAL:No Clubbing/cyanosis;muscles-grossly intact NEUROLOGICAL: Cranial nerves grossly intact; no facial asymmetry, power and sensation grossly intact. LYMPHATICS: No lymph nodes palpable in the axilla and neck INVESTIGATIONS, reviewed in the clinical context: December 16, 2023: White count 14 hemoglobin 14.3 platelets 516 neutrophils 11.4 sodium 140 potassium 5.1 BUN 9 creatinine 0.49 Troponin I less than 0.012. CRP 2.3 procalcitonin 0.03 hCG: Not detected Influenza type A, type B, urine Legionella antigen, RSV, COVID-19: Not detected EKG tracing personally reviewed by me-normal sinus rhythm CT chest angio for PE: Negative for PE. Assessment and plan: -Acute tracheobronchitis. Recurrent. Patient seems to multiple viral infection with some possible secondary overlap. IV ceftriaxone. Consult pulmonary -Secondary bronchospasm Bronchodilators -Musculoskeletal pain from coughing in the chest wall Naproxen to 50 mg 3 times daily Care was discussed with patient. Questions answered. Pulmonary is consulted. Add IV Solu-Medrol. Past Medical History Additional Past Medical History / Comment(s): HAD SOME BLOOD AND MUCUS IN STOOL IN AUG/SEP AND ABD. PAIN. Gestational Diabetes, meningitis in 2003 History of Any Multi-Drug Resistant Organisms: None Reported Past Surgical History: No Surgical Hx Reported, Tonsillectomy Additional Past Surgical History / Comment(s): WISDOM TEETH REMOVED UNDER ANESTHESIA Past Anesthesia/Blood Transfusion Reactions: No Reported Reaction Past Psychological History: No Psychological Hx Reported Smoking Status: Never smoker Past Alcohol Use History: Occasional Past Drug Use History: None Reported - Past Family History Mother Family Medical History: Deep Vein Thrombosis (DVT) Medications and Allergies Home Medications Medication Instructions Recorded Confirmed Type Azithromycin [Zithromax] 500 mg PO DIRECTED 12/17/23 12/17/23 History Benzonatate [Tessalon Perle] 200 mg PO DIRECTED 12/17/23 12/17/23 History Budesonide/Glycopyr/Formoterol 2 puff INHALATION DIRECTED 12/17/23 12/17/23 History [Breztri Aerosphere Inhaler] Ipratropium-Albuterol Nebulize 3 ml INHALATION DIRECTED 12/17/23 12/17/23 History [Duoneb 0.5 mg-3 mg/3 ml Soln] Levofloxacin [Levaquin] 750 mg PO DIRECTED 12/17/23 12/17/23 History Promethazine HCl [Phenergan Syrup] 6.25 mg PO DIRECTED 12/17/23 12/17/23 History predniSONE See Taper PO DIRECTED 12/17/23 12/17/23 History traMADol HCl [Ultram] 50 mg PO DIRECTED 12/17/23 12/17/23 History Allergies Allergy/AdvReac Type Severity Reaction Status Date / Time No Known Allergies Allergy Verified 12/17/23 10:14 Physical Exam Vitals: Vital Signs Temp Pulse Pulse Resp BP BP BP 12/17/23 07:52 12/17/23 07:00 97.7 F 75 19 111/72 12/17/23 02:00 98.1 F 71 15 108/69 12/16/23 21:24 97.8 F 68 16 136/73 12/16/23 20:50 98.7 F 72 16 110/71 12/16/23 18:54 90 22 12/16/23 18:48 90 22 12/16/23 15:32 98.7 F 90 18 158/82 Pulse Ox 12/17/23 07:52 97 12/17/23 07:00 97 12/17/23 02:00 97 12/16/23 21:24 100 12/16/23 20:50 98 12/16/23 18:54 12/16/23 18:48 12/16/23 15:32 99 Intake and Output 12/16/23 12/17/23 12/17/23 22:59 06:59 14:59 Intake Total 240 1060 118 Balance 240 1060 118 Intake: Intake, IV Titration 100 Amount cefTRIAXone 1 gm In 100 Sodium Chloride 0.9% 50 ml @ 100 mls/hr IVPB Q24H [facility] Rx#:[id number] Oral 240 960 118 Other: # Voids 2 2 Weight 76.657 kg Results CBC & Chem 7: 12/16/23 16:15 12/16/23 16:15 Labs: Abnormal Lab Results - Last 24 Hours (Table) 12/16/23 12/16/23 12/16/23 Range/Units 16:15 16:15 16:15 WBC 14.0 H (3.8-10.6) k/uL Plt Count 516 H (150-450) k/uL Neutrophils # 11.4 H (1.3-7.7) k/uL PT 9.4 L (10.0-12.5) sec D-Dimer 0.61 H (<0.60) mg/L FEU Creatinine 0.49 L (0.52-1.04) mg/dL AST 39 H (14-36) U/L C-Reactive Protein 2.3 H (<1.0) mg/dL Total Protein 8.4 H (6.3-8.2) g/dL Thrombosis Risk Factor Assmnt - Choose All That Apply Any of the Below Risk Factors Present?: No Other Risk Factors: No Other congenital or acquired thrombophilia - If yes, enter type in comment: No Thrombosis Risk Factor Assessment Level: Very Low Risk
[2023-12-17] MEDS: NAPROXEN 250 MG TAB PO SCH (16:47)
[2023-12-17] MEDS: methylPREDNISolone SOD SUCCI 40 MG/ML 1 ML VIAL IV SCH (16:48)
--- NOTE | 2023-12-17 17:09 | P.CNPUL ---
History of Present Illness Consult date: 12/17/23 Requesting physician: Jaden Figueroa Reason for consult: asthma Chief complaint: Shortness of breath, cough, wheeze History of present illness: This is a 38-year-old female primarily a patient of Dr. Pepe Solomon, patient has multiple seasonal allergies and it is not unusual for the patient to have symptoms of cough, nasal symptoms, nasal congestion, occasional wheezing in the spring and the fall. However the patient was never diagnosed with asthma. Since last July patient has been dealing with her chronic cough, which has been persistent. Cough is usually dry, nonproductive. Recently one of her kids came down with influenza B infection, patient came down with symptoms of worseni ng cough, shortness of breath, wheezing, and this has been going on for over [address] Solomon yesterday, and he wanted to admit her because of her symptoms. However the patient declined hospital admission, and multiple prescriptions were called in for the patient including prednisone, albuterol, Levaquin, Zithromax, Phenergan, Tessalon, patient did not get a chance to take any of these medications, continues to do poorly continued to have more symptoms of cough wheezing and shortness of breath, hence she came to the ER today. CT angiogram of the chest showed no evidence of pulmonary embolism, however it did show very small tiny negligible bilateral pleural effusions, no evidence of infiltrate on the CT of the chest. Patient was screened for influenza A, influenza B, Legionella, RSV, and COVID-19, all testing came back negative. Review of Systems REVIEW OF SYSTEMS: CONSTITUTIONAL: Patient had recent intermittent low-grade fever, and generalized body aches and pains, consistent with viral infection EYES: Negative. ENT: Nasal congestion, intermittent, seems to be more seasonal. CARDIAC: Negative. PULMONARY: As noted in HPI mostly cough wheezing shortness of breath. GI: Negative. GENITOURINARY: Negative. MUSCULOSKELETAL: Negative. SKIN: Negative. NEUROPSYCH: Negative. ENDOCRINE: Negative. HEMATOLOGIC: Negative. Past Medical History Additional Past Medical History / Comment(s): HAD SOME BLOOD AND MUCUS IN STOOL IN AUG/SEP AND ABD. PAIN. Gestational Diabetes, meningitis in 2003 History of Any Multi-Drug Resistant Organisms: None Reported Past Surgical History: No Surgical Hx Reported, Tonsillectomy Additional Past Surgical History / Comment(s): WISDOM TEETH REMOVED UNDER ANESTHESIA Past Anesthesia/Blood Transfusion Reactions: No Reported Reaction Past Psychological History: No Psychological Hx Reported Smoking Status: Never smoker Past Alcohol Use History: Occasional Past Drug Use History: None Reported - Past Family History Mother Family Medical History: Deep Vein Thrombosis (DVT) Medications and Allergies Home Medications Medication Instructions Recorded Confirmed Type Azithromycin [Zithromax] 500 mg PO DIRECTED 12/17/23 12/17/23 History Benzonatate [Tessalon Perle] 200 mg PO DIRECTED 12/17/23 12/17/23 History Budesonide/Glycopyr/Formoterol 2 puff INHALATION DIRECTED 12/17/23 12/17/23 History [Breztri Aerosphere Inhaler] Ipratropium-Albuterol Nebulize 3 ml INHALATION DIRECTED 12/17/23 12/17/23 History [Duoneb 0.5 mg-3 mg/3 ml Soln] Levofloxacin [Levaquin] 750 mg PO DIRECTED 12/17/23 12/17/23 History Promethazine HCl [Phenergan Syrup] 6.25 mg PO DIRECTED 12/17/23 12/17/23 History predniSONE See Taper PO DIRECTED 12/17/23 12/17/23 History traMADol HCl [Ultram] 50 mg PO DIRECTED 12/17/23 12/17/23 History Allergies Allergy/AdvReac Type Severity Reaction Status Date / Time No Known Allergies Allergy Verified 12/17/23 10:14 Physical Exam Vitals: Vital Signs Temp Pulse Pulse Resp BP BP BP 12/17/23 16:01 86 12/17/23 15:51 92 12/17/23 15:00 97.9 F 83 18 106/64 12/17/23 07:52 12/17/23 07:00 97.7 F 75 19 111/72 12/17/23 02:00 98.1 F 71 15 108/69 12/16/23 21:24 97.8 F 68 16 136/73 12/16/23 20:50 98.7 F 72 16 110/71 12/16/23 18:54 90 22 12/16/23 18:48 90 22 Pulse Ox 12/17/23 16:01 12/17/23 15:51 12/17/23 15:00 95 12/17/23 07:52 97 12/17/23 07:00 97 12/17/23 02:00 97 12/16/23 21:24 100 12/16/23 20:50 98 12/16/23 18:54 12/16/23 18:48 Intake and Output 12/17/23 12/17/23 12/17/23 06:59 14:59 22:59 Intake Total 1060 358 Balance 1060 358 Intake: Intake, IV Titration 100 Amount cefTRIAXone 1 gm In 100 Sodium Chloride 0.9% 50 ml @ 100 mls/hr IVPB Q24H [facility] Rx#:[id number] Oral 960 358 Other: # Voids 2 2 General: Revealed 38-year-old female in no distress, on room air Head: Atraumatic normocephalic Skin: Skin is warm and dry and no rashes or lesions are noted. Eye: Pupils are equal, round and reactive to light, extra-ocular movements are intact; there is normal conjunctiva bilaterally. Ears, nose, mouth and throat: There are moist mucous membranes and no oral lesions. Neck: The neck is supple, there is no tenderness or JVD. Cardiovascular: There is a regular rate and rhythm. No murmur, rub or gallop is appreciated. Respiratory: Diffuse rhonchi and wheezes noted bilaterally Gastrointestinal: Soft, non-distended, non-tender abdomen without masses or organomegaly noted. There is no rebound or guarding present. Bowel sounds are unremarkable. Back: There is no tenderness to palpation in the midline. There is no obvious deformity. Musculoskeletal: Normal ROM, no tenderness, There is no pedal edema. There is no calf tenderness or swelling. No cords were appreciated. Neurological: CN II-XII intact, Cranial nerves III through XII are intact. There are no obvious motor or sensory deficits. Coordination appears grossly intact. Speech is normal. Psychiatric: Cooperative, appropriate mood & affect, normal judgment. Results - Laboratory Findings CBC and BMP: 12/16/23 16:15 12/16/23 16:15 PT/INR, D-dimer PT 9.4 sec (10.0-12.5) L 12/16/23 16:15 INR 0.8 (<1.2) 12/16/23 16:15 D-Dimer 0.61 mg/L FEU (<0.60) H 12/16/23 16:15 Abnormal lab findings: Abnormal Labs 12/16/23 12/16/23 12/16/23 16:15 16:15 16:15 WBC 14.0 H Plt Count 516 H Neutrophils # 11.4 H PT 9.4 L D-Dimer 0.61 H Creatinine 0.49 L AST 39 H C-Reactive Protein 2.3 H Total Protein 8.4 H - Diagnostic Findings Chest x-ray: image reviewed (CT of the chest was reviewed, no significant abnormality, the finding of a small tiny pleural effusion is nonspecific, doubt clinical significance) CT scan - chest: image reviewed Assessment and Plan Assessment: Impression: Acute tracheobronchitis with reactive bronchospasm, strongly suspect bronchial asthma. Musculoskeletal chest wall pain Seasonal allergic rhinitis Suspect recent history of influenza B infection, patient was exposed to her son and she had classic viral illness symptoms Recommendation: Patient will be admitted Will treat with bronchodilators including albuterol, Perforomist, Pulmicort, Start empiric antibiotics including Rocephin and Zithromax, and if procalcitonin level is normal could discontinue antibiotics Start Solu-Medrol 60 mg IV push every 6 hours Start Singulair 10 mg daily Protonix 40 mg daily Cough suppressant medications DVT prophylaxis Will continue to follow Time with Patient: Greater than 30
[2023-12-17] MEDS: AZITHROMYCIN 500 MG TAB PO SCH (18:29)
[2023-12-17] MEDS: PANTOPRAZOLE 40 MG TABLET PO SCH (18:29)
[2023-12-17] MEDS: methylPREDNISolone SOD SUCCI 125 MG/2 ML VIAL IV SCH (18:30)
[2023-12-17] MEDS: guaiFENesin-Coden 100-10MG/5ML 10 ML CUP PO PRN (18:31)
[2023-12-17] MEDS ORDERED: SYMBICORT 160-4.5 MCG INHALER INHALATION SCH (20:00)
[2023-12-17] MEDS: ALBUTEROL NEBULIZED 2.5 MG/3 ML INHALATION SCH (20:34)
[2023-12-17] MEDS: BUDESONIDE 1 MG/2 ML NEBU INHALATION SCH (20:34)
[2023-12-17] MEDS: FORMOTEROL FUMARATE 20 MCG/2 ML NEBU INHALATION SCH (20:34)
[2023-12-17] MEDS: MONTELUKAST 10 MG TAB PO SCH (21:23)
--- NOTE | 2023-12-18 12:52 | P.PN ---
Subjective Progress Note Date: 12/18/23 Principal diagnosis: Acute tracheobronchitis and reactive bronchospasm This is a 38-year-old female primarily a patient of Dr. Pepe Solomon, patient has multiple seasonal allergies and it is not unusual for the patient to have symptoms of cough, nasal symptoms, nasal congestion, occasional wheezing in the spring and the fall. However the patient was never diagnosed with asthma. Since last July patient has been dealing with her chronic cough, which has been persistent. Cough is usually dry, nonproductive. Recently one of her kids came down with influenza B infection, patient came down with symptoms of worsening cough, shortness of breath, wheezing, and this has been going on for over [address] Solomon yesterday, and he wanted to admit her because of her symptoms. However the patient declined hospital admission, and multiple prescriptions were called in for the patient including prednisone, albuterol, Levaquin, Zithromax, Phenergan, Tessalon, patient did not get a chance to take any of these medications, continues to do poorly continued to patel ve more symptoms of cough wheezing and shortness of breath, hence she came to the ER today. CT angiogram of the chest showed no evidence of pulmonary embolism, however it did show very small tiny negligible bilateral pleural effusions, no evidence of infiltrate on the CT of the chest. Patient was screened for influenza A, influenza B, Legionella, RSV, and COVID-19, all testing came back negative. Patient was today on 12/18/23, patient is noticing definite improvement compared to yesterday, nonetheless she continues to cough and wheeze. On physical examination there is definitely less wheezing compared to yesterday, and less episodes of intermittent coughing. Patient is on maximal therapy for bronchitis and bronchospasm, patient may have underlying bronchial asthma. Today I am recommending that we continue the same medications, her procalcitonin level was normal hence I am stopping antibiotics. Viral screening was negative on this admission Objective - Vital Signs Vital signs: Vital Signs Temp 98.1 F 12/18/23 12:31 Pulse 110 H 12/18/23 12:31 Resp 18 12/17/23 15:00 BP 134/71 12/18/23 12:31 Pulse Ox 94 L 12/18/23 07:51 FiO2 Intake & Output 12/17/23 12/18/2312/17/24 18:59 06:59 18:59 Intake Total 598 Balance 598 Intake: Oral 598 Other: # Voids 2 2 - Exam General: Revealed 38-year-old female in no distress, on room air, 98% O2 saturation Head: Atraumatic normocephalic Skin: Skin is warm and dry and no rashes or lesions are noted. Eye: Pupils are equal, round and reactive to light, extra-ocular movements are intact; there is normal conjunctiva bilaterally. Ears, nose, mouth and throat: There are moist mucous membranes and no oral lesions. Neck: The neck is supple, there is no tenderness or JVD. Cardiovascular: There is a regular rate and rhythm. No murmur, rub or gallop is appreciated. Respiratory: Less wheezing and rhonchi compared to yesterday and decent airflow bilaterally. Gastrointestinal: Soft, non-distended, non-tender abdomen without masses or organomegaly noted. There is no rebound or guarding present. Bowel sounds are unremarkable. Back: There is no tenderness to palpation in the midline. There is no obvious deformity. Musculoskeletal: Normal ROM, no tenderness, There is no pedal edema. There is no calf tenderness or swelling. No cords were appreciated. Neurological: CN II-XII intact, Cranial nerves III through XII are intact. There are no obvious motor or sensory deficits. Coordination appears grossly intact. Speech is normal. Psychiatric: Cooperative, appropriate mood & affect, normal judgment. - Labs CBC & Chem 7: 12/16/23 16:15 12/16/23 16:15 Assessment and Plan Assessment: Impression: Acute tracheobronchitis with reactive bronchospasm, strongly suspect bronchial asthma. Musculoskeletal chest wall pain Seasonal allergic rhinitis Suspect recent history of influenza B infection, patient was exposed to her son and she had classic viral illness symptoms Recommendation: Continue bronchodilators including albuterol, Perforomist, Pulmicort, Discontinue antibiotics since the patient had normal procalcitonin level Continue Solu-Medrol at 60 mg IV push every 6 hours Continue Singulair 10 mg daily Continue Protonix 40 mg daily Cough suppressant medications DVT prophylaxis Will continue to follow, will decide on possible discharge planning tomorrow and the patient should have definite outpatient follow-up regarding her overall pulmonary status and needs to be assessed for possible underlying bronchial asthma Time with Patient: Less than 30
--- NOTE | 2023-12-18 16:29 | P.PN ---
Progress Note - Text Progress Note Date: 12/18/23 Chief Complaint: Short of breath cough This is a pleasant 38-year-old patient who follows with Dr. Pepe Solomon. 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 Patient does get seasonal allergies. Since fall of last year patient had at least 4-5 bouts of respiratory infections. What she describes as sinus infection waiting nose fever chills nausea vomiting at times. Also her preschool child comes back from school however brings in infection. Recently her child had influenza B. Patient currently has a cough. Which is productive but because of pain in the sides she is a swallowing the same. No fever no chills. Feels tired. She was sent in by her family doctor Dr. Pepe Solomon. December 17: Has a cough. Not able to really expectorate much. Seen by pulmonary Dr. Sol. On Ventolin nebulizer. Nebulized Pulmicort. Perform rest. IV S radha-Medrol. For musculoskeletal pain from coughing on naproxen. Breathing exercises including incentive spirometry discussed. Pulmonary suspecting asthma. Tolerating diet. at the bedside. Active Medications Acetaminophen (Acetaminophen Tab 325 Mg Tab) 650 mg PO Q6HR PRN PRN Reason: Mild Pain or Fever > 100.5 Last Admin: 12/17/23 08:14 Dose: 650 mg Albuterol Sulfate (Albuterol Nebulized 2.5 Mg/3 Ml) 2.5 mg INHALATION RT-QID PRN PRN Reason: Shortness Of Breath Or Wheezing Last Admin: 12/17/23 15:47 Dose: 2.5 mg Albuterol Sulfate (Albuterol Nebulized 2.5 Mg/3 Ml) 2.5 mg INHALATION RT-QID [facility] Last Admin: 12/18/23 15:29 Dose: 2.5 mg Budesonide (Budesonide 1 Mg/2 Ml Nebu) 1 mg INHALATION RT-BID [facility] Last Admin: 12/18/23 07:48 Dose: 1 mg Enoxaparin Sodium (Enoxaparin 40 Mg/0.4 Ml Syringe) 40 mg SQ DAILY [facility] Last Admin: 12/18/23 08:29 Dose: Not Given Formoterol Fumarate (Formoterol Fumarate 20 Mcg/2 Ml Nebu) 20 mcg INHALATION R T-BID [facility] Last Admin: 12/18/23 07:48 Dose: 20 mcg Guaifenesin (Guaifenesin 600 Mg Tablet.Er) 600 mg PO QID [facility] Last Admin: 12/18/23 12:24 Dose: 600 mg Guaifenesin/Codeine Phosphate (Guaifenesin-Coden 100-10mg/5ml 10 Ml Cup) 10 ml PO Q6HR PRN PRN Reason: Cough Last Admin: 12/17/23 18:31 Dose: 10 ml Ketorolac Tromethamine (Ketorolac 15 Mg/Ml 1 Ml Vial) 15 mg IVP Q6HR PRN PRN Reason: Moderate Pain (Scale 4 to 6) Stop: 12/19/23 19:59 Last Admin: 12/18/23 12:31 Dose: 15 mg Methylprednisolone Sodium Succinate (Methylprednisolone Sod Succi 125 Mg/2 Ml Vial) 60 mg IV Q6HR [facility] Last Admin: 12/18/23 12:24 Dose: 60 mg Montelukast Sodium (Montelukast 10 Mg Tab) 10 mg PO HS [facility] Last Admin: 12/17/23 21:23 Dose: 10 mg Naloxone HCl (Naloxone 0.4 Mg/Ml 1 Ml Vial) 0.2 mg IV Q2M PRN PRN Reason: Opioid Reversal Naproxen (Naproxen 250 Mg Tab) 250 mg PO TID [facility] Last Admin: 12/18/23 08:27 Dose: 250 mg Ondansetron HCl (Ondansetron 4 Mg/2 Ml Vial) 4 mg IVP Q8HR PRN PRN Reason: Nausea And Vomiting Pantoprazole Sodium (Pantoprazole 40 Mg Tablet) 40 mg PO AC-BID [facility] Last Admin: 12/18/23 08:30 Dose: 40 mg Social history: Works as a ICU nurse at [employer]. Has 4 children from the age of 5-20. Alcohol occasionally. No smoking. Physical examination: VITAL SIGNS: 98.1, 102, 20, 125 x 74, 98% room air GENERAL: Sitting up in bed EYES: Pupils equal. Conjunctiva jennifer l. HEENT: External appearance of nose and ears normal, oral cavity grossly normal. NECK: JVD not raised; masses not palpable. HEART: First and second heart sounds are normal; no edema. LUNGS: Respiratory rate increased, improved basal crackles. Decreased wheezing. Patient has some splinting with deep breaths ABDOMEN: Soft, nontender, liver spleen not palpable, no masses palpable. PSYCH: Alert and oriented x3; mood and affect n slightly anxious l. MUSCULOSKELETAL:No Clubbing/cyanosis;muscles-grossly intact INVESTIGATIONS, reviewed in the clinical context: Procalcitonin 0.03 December 16, 2023: White count 14 hemoglobin 14.3 platelets 516 neutrophils 11.4 sodium 140 potassium 5.1 BUN 9 creatinine 0.49 Troponin I less than 0.012. CRP 2.3 procalcitonin 0.03 hCG: Not detected Influenza type A, type B, urine Legionella antigen, RSV, COVID-19: Not detected EKG tracing personally reviewed by me-normal sinus rhythm CT chest angio for PE: Negative for PE. Assessment and plan: -Acute tracheobronchitis. Recurrent. Patient seems to multiple viral infection with some secondary bacterial infection less likely given procalcitonin times two 0.03 IV ceftriaxone.-Discontinued Pulmonary following. -Secondary bronchospasm. Consider outpatient workup for asthma Bronchodilators -Musculoskeletal pain from coughing in the chest wall, with splinting with deep breath Naproxen to 250 mg 3 times daily Care was discussed. Continue current medication treatment plan. Will check immune deficiency panel Past Medical History Additional Past Medical History / Comment(s): HAD SOME BLOOD AND MUCUS IN STOOL IN NOV/SEP AND ABD. PAIN. Gestational Diabetes, meningitis in 2003 History of Any Multi-Drug Resistant Organisms: None Reported Past Surgical History: No Surgical Hx Reported, Tonsillectomy Additional Past Surgical History / Comment(s): WISDOM TEETH REMOVED UNDER ANESTHESIA Past Anesthesia/Blood Transfusion Reactions: No Reported Reaction Past Psychological History: No Psychological Hx Reported Smoking Status: Never smoker Past Alcohol Use History: Occasional Past Drug Use History: None Reported
[2023-12-18] MEDS: CYCLOBENZAPRINE 5 MG TAB PO PRN (21:46)
[2023-12-19 09:36] LABS: T4/T8 Ratio (CD4:CD8) 3.6 (1.0-3.7)
--- NOTE | 2023-12-19 12:45 | P.PN ---
Subjective Progress Note Date: 12/19/23 This is a 38-year-old female primarily a patient of Dr. Pepe Solomon, patient has multiple seasonal allergies and it is not unusual for the patient to have symptoms of cough, nasal symptoms, nasal congestion, occasional wheezing in the spring and the fall. However the patient was never diagnosed with asthma. Since last July patient has been dealing with her chronic cough, which has been persistent. Cough is usually dry, nonproductive. Recently one of her kids came down with influenza B infection, patient came down with symptoms of worsening cough, shortness of breath, wheezing, and this has been going on for over [address] Solomon yesterday, and he wanted to admit her because of her symptoms. However the patient declined hospital admission, and multiple prescriptions were called in for the patient including prednisone, albuterol, Levaquin, Zithromax, Phenergan, Tessalon, patient did not get a chance to take any of these medications, continues to do poorly continued to h ave more symptoms of cough wheezing and shortness of breath, hence she came to the ER today. CT angiogram of the chest showed no evidence of pulmonary embolism, however it did show very small tiny negligible bilateral pleural effusions, no evidence of infiltrate on the CT of the chest. Patient was screened for influenza A, influenza B, Legionella, RSV, and COVID-19, all testing came back negative. Patient was today on 12/18/23, patient is noticing definite improvement compared to yesterday, nonetheless she continues to cough and wheeze. On physical examination there is definitely less wheezing compared to yesterday, and less episodes of intermittent coughing. Patient is on maximal therapy for bronchitis and bronchospasm, patient may have underlying bronchial asthma. Today I am recommending that we continue the same medications, her procalcitonin level was normal hence I am stopping antibiotics. Viral screening was negative on this admission The patient is seen today December 19, 2023 in follow-up on the regular medical floor. She is currently sitting up at the bedside. Awake and alert in no acute distress. She continues with a loose cough of clear productive sputum at times, still somewhat bronchospastic and wheezing. She is maintaining good O2 saturations in the 90s on room air. She is still having ongoing issues with right-sided chest wall pain mostly with movement and cough. She remains on albuterol, Pulmicort and Perforomist inhalations, Solu-Medrol and Singulair. Mucinex and Robitussin as needed. Lovenox for DVT prophylaxis. Objective - Vital Signs Vital signs: Vital Signs Temp 98.1 F 12/19/23 07:08 Pulse 85 12/19/23 11:49 Resp 18 12/19/23 07:08 BP 109/61 12/19/23 07:08 Pulse Ox 97 12/19/23 07:50 FiO2 Intake & Output 12/18/23 12/19/23 12/19/23 18:59 06:59 18:59 Other: # Voids 1 3 - Exam GENERAL EXAM: Alert, pleasant 38-year-old female, on room air, fairly comfortable in no apparent distress. HEAD: Normocephalic. EYES: Normal reaction of pupils, equal size. NOSE: Clear with pink turbinates. THROAT: No erythema or exudates. NECK: No masses, no JVD. CHEST: No chest wall deformity. LUNGS: Equal air entry with end expiratory wheeze. CVS: S1 and S2 normal with no audible murmur, regular rhythm. Tachycardic. ABDOMEN: No hepatosplenomegaly, normal bowel sounds, no guarding or rigidity. SPINE: No scoliosis or deformity SKIN: No rashes CENTRAL NERVOUS SYSTEM: No focal deficits, tone is normal in all 4 extremities. EXTREMITIES: There is no peripheral edema. No clubbing, no cyanosis. Peripheral pulses are intact. - Labs CBC & Chem 7: 12/16/23 16:15 12/16/23 16:15 Labs: Abnormal Lab Results - Last 24 Hours (Table) 12/18/23 Range/Units 17:20 T-Suppressor Cells 57 L (190-832) cell/ul Total T Cells 269 L (704-2138) cell/ul % CD3 Cells 48 L (55-86) % Absolute CD4 [place] 208 L (443-1471) cell/ul % CD19 Cells 34 H (4-25) % Assessment and Plan Assessment: Acute tracheobronchitis with reactive bronchospasm, strongly suspect bronchial asthma. Musculoskeletal chest wall pain Seasonal allergic rhinitis Suspect recent history of influenza B infection, patient was exposed to her son and she had classic viral illness symptoms Plan: The patient was seen and evaluated Medications reviewed Not quite back to her baseline Continue the current treatment plan Rib x-rays on the right to rule out fracture Follow-up chest x-ray in the a.m. We will continue to follow I have personally seen and examined the patient, performed the documentation and the assessment and plan as written. Number of minutes spent on the visit: 10.
--- NOTE | 2023-12-19 15:11 | XR ---
EXAMINATION TYPE: XR ribs RT DATE OF EXAM: 12/19/2023 COMPARISON: NONE HISTORY: 38 year-old female posterior right rib pain TECHNIQUE: 4 views FINDINGS: There is a gentle levoconvex scoliotic curvature centered along the upper thoracic spine. Minimally offset fracture right lateral sixth and seventh ribs. No pleural effusion or pneumothorax seen. IMPRESSION: Minimally offset fractures right lateral sixth and seventh ribs.
--- NOTE | 2023-12-19 16:23 | P.PN ---
Progress Note - Text Progress Note Date: 12/19/23 Chief Complaint: Short of breath cough This is a pleasant 38-year-old patient who follows with Dr. Pepe Solomon. 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 Patient does get seasonal allergies. Since fall of last year patient had at least 4-5 bouts of respiratory infections. What she describes as sinus infection waiting nose fever chills nausea vomiting at times. Also her preschool child comes back from school however brings in infection. Recently her child had influenza B. Patient currently has a cough. Which is productive but because of pain in the sides she is a swallowing the same. No fever no chills. Feels tired. She was sent in by her family doctor Dr. Pepe Solomon. December 17: Has a cough. Not able to really expectorate much. Seen by pulmonary Dr. Sol. On Ventolin nebulizer. Nebulized Pulmicort. Perform rest. IV S radha-Medrol. For musculoskeletal pain from coughing on naproxen. Breathing exercises including incentive spirometry discussed. Pulmonary suspecting asthma. Tolerating diet. at the bedside. December 18: Still having coughing spells. Pain with coughing. Continues on medication. Lifestyle changes discussed. Follow-up with pulmonary. Abnormal CT for CT 3 NT suppressor cells. Consult hematology. HIV testing. Active Medications Acetaminophen (Acetaminophen Tab 325 Mg Tab) 650 mg PO Q6HR PRN PRN Reason: Mild Pain or Fever > 100.5 Last Admin: 12/17/23 08:14 Dose: 650 mg Albuterol Sulfate (Albuterol Nebulized 2.5 Mg/3 Ml) 2.5 mg INHALATION RT-QID PRN PRN Reason: Shortness Of Breath Or Wheezing Last Admin: 12/17/23 15:47 Dose: 2.5 mg Albuterol Sulfate (Albuterol Nebulized 2.5 Mg/3 Ml) 2.5 mg INHALATION RT-QID DASH Last Admin: 12/19/23 15:22 Dose: 2.5 mg Budesonide (Budesonide 1 Mg/2 Ml Nebu) 1 mg INHALATION RT-BID DASH Last Admin: 12/19/23 07:45 Dose: 1 mg Cyclobenzaprine HCl (Cyclobenzaprine 5 Mg Tab) 5 mg PO TID PRN PRN Reason: Muscle Spasm Last Admin: 12/19/23 08:59 Dose: 5 mg Enoxaparin Sodium (Enoxaparin 40 Mg/0.4 Ml Syringe) 40 mg SQ DAILY [facility] Last Admin: 12/19/23 09:01 Dose: Not Given Formoterol Fumarate (Formoterol Fumarate 20 Mcg/2 Ml Nebu) 20 mcg INHALATION RT-BID [facility] Last Admin: 12/19/23 07:45 Dose: 20 mcg Guaifenesin (Guaifenesin 600 Mg Tablet.Er) 600 mg PO QID [facility] Last Admin: 12/19/23 12:13 Dose: 600 mg Guaifenesin/Codeine Phosphate (Guaifenesin-Coden 100-10mg/5ml 10 Ml Cup) 10 ml PO Q6HR PRN PRN Reason: Cough Last Admin: 12/17/23 18:31 Dose: 10 ml Ketorolac Tromethamine (Ketorolac 15 Mg/Ml 1 Ml Vial) 15 mg IVP Q6HR PRN PRN Reason: Moderate Pain (Scale 4 to 6) Stop: 12/19/23 19:59 Last Admin: 12/19/23 12:12 Dose: 15 mg Methylprednisolone Sodium Succinate (Methylprednisolone Sod Succi 125 Mg/2 Ml Vial) 60 mg IV Q6HR [facility] Last Admin: 12/19/23 12:12 Dose: 60 mg Montelukast Sodium (Montelukast 10 Mg Tab) 10 mg PO HS [facility] Last Admin: 12/18/23 21:46 Dose: 10 mg Naloxone HCl (Naloxone 0.4 Mg/Ml 1 Ml Vial) 0.2 mg IV Q2M PRN PRN Reason: Opioid Reversal Naproxen (Naproxen 250 Mg Tab) 250 mg PO TID [facility] Last Admin: 12/19/23 08:59 Dose: 250 mg Ondansetron HCl (Ondansetron 4 Mg/2 Ml Vial) 4 mg IVP Q8HR PRN PRN Reason: Nausea And Vomiting Pantoprazole Sodium (Pantoprazole 40 Mg Tablet) 40 mg PO AC-BID [facility] Last Admin: 12/19/23 08:59 Dose: 40 mg Social history: Works as a ICU nurse at [employer]. Has 4 children from the age of 5-20. Alcohol occasionally. No smoking. Physical examination: VITAL SIGNS: 98.2, 83, 20, 1 one 5 x 60, 97% room air GENERAL: Sitting up in bed EYES: Pupils equal. Conjunctiva jennifer l. HEENT: External appearance of nose and ears normal, oral cavity grossly normal. NECK: JVD not raised; masses not palpable. HEART: First and second heart sounds are normal; no edema. LUNGS: Respiratory rate increased, basal crackles resolved. Decreased wheezing. Patient has some splinting with deep breaths ABDOMEN: Soft, nontender, liver spleen not palpable, no masses palpable. PSYCH: Alert and oriented x3; mood and affect n slightly anxious l. MUSCULOSKELETAL:No Clubbing/cyanosis;muscles-grossly intact INVESTIGATIONS, reviewed in the clinical context: No count for: T suppressor cells, total T cells, Perseris percentage CD3 cells, persistent CD4 helper, absolute CD4 helper, percent CD19 cells. Procalcitonin 0.03 December 16, 2023: White count 14 hemoglobin 14.3 platelets 516 neutrophils 11.4 sodium 140 potassium 5.1 BUN 9 creatinine 0.49 Troponin I less than 0.012. CRP 2.3 procalcitonin 0.03 hCG: Not detected Influenza type A, type B, urine Legionella antigen, RSV, COVID-19: Not detected EKG tracing personally reviewed by me-normal sinus rhythm CT chest angio for PE: Negative for PE. Assessment and plan: -Acute tracheobronchitis. Recurrent. Patient seems to multiple viral infection with some secondary bacterial infection less likely given procalcitonin times two 0.03 IV ceftriaxone.-Discontinued Pulmonary following. -Abnormal CD4 CD3 cell count. Consult hematology. This was done for immuno deficiency panel. -Secondary bronchospasm. Consider outpatient workup for asthma Bronchodilators -Musculoskeletal pain from coughing in the chest wall, with splinting with deep breath Naproxen to 250 mg 3 times daily Continue current medication. Lifestyle changes discussed with the patient. Past Medical History Additional Past Medical History / Comment(s): HAD SOME BLOOD AND MUCUS IN STOOL IN NOV/DEC AND ABD. PAIN. Gestational Diabetes, meningitis in 2003 History of Any Multi-Drug Resistant Organisms: None Reported Past Surgical History: No Surgical Hx Reported, Tonsillectomy Additional Past Surgical History / Comment(s): WISDOM TEETH REMOVED UNDER ANESTHESIA Past Anesthesia/Blood Transfusion Reactions: No Reported Reaction Past Psychological History: No Psychological Hx Reported Smoking Status: Never smoker Past Alcohol Use History: Occasional Past Drug Use History: None Reported
--- NOTE | 2023-12-19 18:03 | P.CONS ---
History of Present Illness - Reason for Consult Consult date: 12/19/23 abnormal immunology labs Requesting physician: Jaden Figueroa - Chief Complaint SOB - History of Present Illness Patient is a 38-year-old female with a history of gestational diabetes. Consult was placed for abnormal immune labs. Patient presented to emergency room for shortness of breath. Patient has been following up with her PCP due to persistent cough and shortness of breath. Outpatient chest x-ray on 12/16/2023 revealed no focal consolidation to indicate pneumonia. Some strandy densities in the lower lungs suggesting atelectasis. Patient was placed on antibiotics and steroids. Due to progressing shortness of breath patient was referred to the emergency room for further evaluation. Upon presentation D-dimer noted at 0.61. CTA chest negative for pulmonary embolism. Trace bilateral effusions noted. CBC reviewed, WBC 14, hemoglobin 14.3, platelets 516,000. Differential unremarkable except for neutrophilia. CRP 2.3. Troponin negative. T suppres sor cells 57, absolute CD4 helper 208, total T cells 269. CD4/CD8 ratio 3.6. Viral panel negative. At today's visit patient reports persistent cough since July and was diagnosed with influenza a couple weeks ago which has caused cough to worsen with associated shortness of breath. Patient reports in 2018 she was experiencing joint pains and was thought to maybe have fibromyalgia but during w orkup was found that she was . 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 Patient denies any personal history of cancer. Review of Systems 10 point ROS is negative except as stated in the HPI Past Medical History Additional Past Medical History / Comment(s): HAD SOME BLOOD AND MUCUS IN STOOL IN AUG/SEP AND ABD. PAIN. Gestational Diabetes, meningitis in 2003 History of Any Multi-Drug Resistant Organisms: None Reported Past Surgical History: No Surgical Hx Reported, Tonsillectomy Additional Past Surgical History / Comment(s): WISDOM TEETH REMOVED UNDER ANESTHESIA Past Anesthesia/Blood Transfusion Reactions: No Reported Reaction Past Psychological History: No Psychological Hx Reported Smoking Status: Never smoker Past Alcohol Use History: Occasional Past Drug Use History: None Reported - Past Family History Mother Family Medical History: Deep Vein Thrombosis (DVT) Medications and Allergies Home Medications Medication Instructions Recorded Confirmed Type Azithromycin [Zithromax] 500 mg PO DIRECTED 12/17/23 12/17/23 History Benzonatate [Tessalon Perle] 200 mg PO DIRECTED 12/17/23 12/17/23 History Budesonide/Glycopyr/Formoterol 2 puff INHALATION DIRECTED 12/17/23 12/17/23 History [Breztri Aerosphere Inhaler] Ipratropium-Albuterol Nebulize 3 ml INHALATION DIRECTED 12/17/23 12/17/23 History [Duoneb 0.5 mg-3 mg/3 ml Soln] Levofloxacin [Levaquin] 750 mg PO DIRECTED 12/17/23 12/17/23 History Promethazine HCl [Phenergan Syrup] 6.25 mg PO DIRECTED 12/17/23 12/17/23 History predniSONE See Taper PO DIRECTED 12/17/23 12/17/23 History traMADol HCl [Ultram] 50 mg PO DIRECTED 12/17/23 12/17/23 History Allergies Allergy/AdvReac Type Severity Reaction Status Date / Time No Known Allergies Allergy Verified 12/17/23 10:14 Physical Exam Vitals: Vital Signs Temp Pulse Pulse Resp BP BP BP 12/19/23 11:49 85 12/19/23 11:28 86 12/19/23 08:16 124 H 12/19/23 08:07 115 H 12/19/23 08:01 113 H 12/19/23 07:50 12/19/23 07:46 89 12/19/23 07:08 98.1 F 85 18 109/61 12/19/23 02:00 98 F 84 16 108/80 12/18/23 21:06 121 H 12/18/23 20:55 110 H 12/18/23 20:54 110 H 12/18/23 20:44 89 12/18/23 19:02 97.7 F 81 16 105/82 12/18/23 15:43 108 H 12/18/23 15:30 100 12/18/23 14:58 98.1 F 102 H 20 125/74 Pulse Ox 12/19/23 11:49 12/19/23 11:28 12/19/23 08:16 12/19/23 08:07 12/19/23 08:01 12/19/23 07:50 97 12/19/23 07:46 12/19/23 07:08 97 12/19/23 02:00 98 12/18/23 21:06 12/18/23 20:55 12/18/23 20:54 12/18/23 20:44 12/18/23 19:02 98 12/18/23 15:43 12/18/23 15:30 12/18/23 14:58 98 Intake and Output 12/18/23 12/19/23 12/19/23 22:59 06:59 14:59 Other: # Voids 3 - Constitutional General appearance: average body habitus, no acute distress - EENT Eyes: anicteric sclerae, EOMI ENT: hearing grossly normal - Neck Neck: no lymphadenopathy - Respiratory mild wheezing bilaterally - Cardiovascular Rhythm: regular Heart sounds: normal: S1, S2 - Gastrointestinal General gastrointestinal: soft, no tenderness - Integumentary Integumentary: no cyanotic, no jaundiced - Neurologic Neurologic: CNII-XII intact - Musculoskeletal Musculoskeletal: strength equal bilaterally - Psychiatric Psychiatric: A&O x's 3 Results CBC & Chem 7: 12/16/23 16:15 12/16/23 16:15 Labs: Abnormal Lab Results - Last 24 Hours (Table) 12/18/23 Range/Units 17:20 T-Suppressor Cells 57 L (190-832) cell/ul Total T Cells 269 L (704-2138) cell/ul % CD3 Cells 48 L (55-86) % Absolute CD4 [place] 208 L (443-1471) cell/ul % CD19 Cells 34 H (4-25) % Chest x-ray: report reviewed CT scan - chest: report reviewed Assessment and Plan (1) Abnormal laboratory test Current Visit: Yes Status: Acute Priority: Medium Code(s): R89.9 - UNSP ABNORMAL FINDING IN SPECIMENS FROM OTH ORG/TISS SNOMED Code(s): 585711262 (2) Chronic cough Current Visit: Yes Status: Acute Priority: Medium Code(s): R05.3 - CHRONIC COUGH SNOMED Code(s): 46528294 (3) Shortness of breath Current Visit: Yes Status: Acute Priority: High Code(s): R06.02 - SHORTNESS OF BREATH SNOMED Code(s): 513577252 Plan: Cough/SOB: Presented to emergency room for shortness of breath. Patient has been following up with her PCP due to persistent cough and shortness of breath. Outpatient chest x-ray on 12/16/2023 revealed no focal consolidation to indicate pneumonia. Some strandy densities in the lower lungs suggesting atelectasis. Patient was recently placed on antibiotics and steroids. Due to progressing shortness of breath patient was referred to the emergency room for further evaluation. -Upon presentation D-dimer noted at 0.61. CTA chest negative for pulmonary embolism. Trace bilateral effusions noted. CBC reviewed, WBC 14, hemoglobin 14.3, platelets 516,000. Differential unremarkable except for neutrophilia. Troponin negative. Viral panel negative. -Bronchodilators and steroids ordered -Defer management to IM and pulmonology team Abnormal immune deficiency panel: -Panel revealed T suppressor cells 57, absolute CD4 helper 208, total T cells 269, CD4/CD8 ratio 3.6. CBC showed WBC 14, hemoglobin 14.3, platelets 516,000. Differential unremarkable except for neutrophilia. CRP 2.3 -Generalized decrease in T cells noted in panel likely related to recent acute viral infection and steroid use. Typically in leukemias we would see elevation in theses values, and CBC differential is unremarkable except for noted neutrophilia making this unlikely -HIV testing has already been ordered -Will order paraproteinemia workup and autoimmune markers. Will also obtain iron studies due to mild thrombocytosis. Will provide further recommendations pending workup Attests: I have performed H&P and developed impression and plan of care for patient, discussed with dictator. I agree with dictated note, documented as a scribe
[2023-12-19 21:32] LABS: Albumin 4.2 g/dL (3.8-4.9); Protein, Total 6.7 g/dL (6.2-8.2)
[2023-12-19 21:40] LABS: % Iron Saturation 25.43 (12.00-45.00); Iron 89 UG/DL (50-170); Rheumatoid Factor, Qnt <15 IU/mL (0-15); Total Iron Binding Capacity 350 UG/DL (228-460)
[2023-12-20 02:51] LABS: Glucose,Whole Blood 153 mg/dL (70-110)
--- NOTE | 2023-12-20 07:40 | XR ---
EXAMINATION TYPE: XR chest 1V portable DATE OF EXAM: 12/20/2023 Comparison: 12/16/2023 Clinical History: 38-year-old female with cough and asthma Findings: The cardiomediastinal silhouette, aorta, and pulmonary vasculature are within normal limits. Mild pa tchy density at the periphery of the left base. No pleural effusion. Impression: Mild patchy atelectasis versus developing infiltrate at the periphery of the left base.
--- NOTE | 2023-12-20 12:31 | P.PN ---
Subjective Progress Note Date: 12/20/23 This is a 38-year-old female primarily a patient of Dr. Pepe Solomon, patient has multiple seasonal allergies and it is not unusual for the patient to have symptoms of cough, nasal symptoms, nasal congestion, occasional wheezing in the spring and the fall. However the patient was never diagnosed with asthma. Since last July patient has been dealing with her chronic cough, which has been persistent. Cough is usually dry, nonproductive. Recently one of her kids came down with influenza B infection, patient came down with symptoms of worsening cough, shortness of breath, wheezing, and this has been going on for over [address] Solomon yesterday, and he wanted to admit her because of her symptoms. However the patient declined hospital admission, and multiple prescriptions were called in for the patient including prednisone, albuterol, Levaquin, Zithromax, Phenergan, Tessalon, patient did not get a chance to take any of these medications, continues to do poorly continued to h ave more symptoms of cough wheezing and shortness of breath, hence she came to the ER today. CT angiogram of the chest showed no evidence of pulmonary embolism, however it did show very small tiny negligible bilateral pleural effusions, no evidence of infiltrate on the CT of the chest. Patient was screened for influenza A, influenza B, Legionella, RSV, and COVID-19, all testing came back negative. Patient was today on 12/18/23, patient is noticing definite improvement compared to yesterday, nonetheless she continues to cough and wheeze. On physical examination there is definitely less wheezing compared to yesterday, and less episodes of intermittent coughing. Patient is on maximal therapy for bronchitis and bronchospasm, patient may have underlying bronchial asthma. Today I am recommending that we continue the same medications, her procalcitonin level was normal hence I am stopping antibiotics. Viral screening was negative on this admission The patient is seen today December 19, 2023 in follow-up on the regular medical floor. She is currently sitting up at the bedside. Awake and alert in no acute distress. She continues with a loose cough of clear productive sputum at times, still somewhat bronchospastic and wheezing. She is maintaining good O2 saturations in the 90s on room air. She is still having ongoing issues with right-sided chest wall pain mostly with movement and cough. She remains on albuterol, Pulmicort and Perforomist inhalations, Solu-Medrol and Singulair. Mucinex and Robitussin as needed. Lovenox for DVT prophylaxis. The patient is seen today December 20, 2023 in follow-up on the regular medical floor. She is awake and alert in no acute distress. Sitting up at the bedside. Breathing easier today compared to yesterday. Still having some right sided chest wall pain. X-rays did reveal nondisplaced fracture of right ribs 6 and 7. She is maintaining good O2 saturations in the upper 90s on room air. Afebrile. Hemodynamically stable. Blood glucose 153. She is continued on albuterol, Pulmicort and Perforomist, Solu-Medrol and Singulair. Lovenox for DVT prophylaxis. Continued on Mucinex and Robitussin as needed. Objective - Vital Signs Vital signs: Vital Signs Temp 98.1 F 12/20/23 06:48 Pulse 90 12/20/23 11:35 Resp 16 12/20/23 06:48 BP 124/67 12/20/23 06:48 Pulse Ox 97 12/20/23 07:38 FiO2 Intake & Output 12/19/23 12/20/23 12/20/23 18:59 06:59 18:59 Other: # Voids 5 2 - Exam GENERAL EXAM: Alert, awake 38-year-old female, on room air, more comfortable, in no apparent distress. HEAD: Normocephalic. EYES: Normal reaction of pupils, equal size. NOSE: Clear with pink turbinates. THROAT: No erythema or exudates. NECK: No masses, no JVD. CHEST: No chest wall deformity. Remains tender on the right side. LUNGS: Equal air entry with end expiratory wheeze. CVS: S1 and S2 normal with no audible murmur, regular rhythm. Tachycardic. ABDOMEN: No hepatosplenomegaly, normal bowel sounds, no guarding or rigidity. SPINE: No scoliosis or deformity SKIN: No rashes CENTRAL NERVOUS SYSTEM: No focal deficits, tone is normal in all 4 extremities. EXTREMITIES: There is no peripheral edema. No clubbing, no cyanosis. Peripheral pulses are intact. - Labs CBC & Chem 7: 12/16/23 16:15 12/16/23 16:15 Labs: Abnormal Lab Results - Last 24 Hours (Table) 12/20/23 Range/Units 02:38 POC Glucose (mg/dL) 153 H (70-110) mg/dL Assessment and Plan Assessment: Acute tracheobronchitis with reactive bronchospasm, strongly suspect bronchial asthma Musculoskeletal chest wall pain secondary to nondisplaced fractures of the right ribs 6 and 7 Seasonal allergic rhinitis Suspect recent history of influenza B infection, and she had classic viral illness symptoms Plan: The patient was seen and evaluated Chest x-ray, medications reviewed Improved but not quite back to her baseline Continue the current treatment plan Probable discharge in the a.m. I have personally seen and examined the patient, performed the documentation and the assessment and plan as written. Number of minutes spent on the visit: 10.
--- NOTE | 2023-12-20 13:11 | P.PN ---
Progress Note - Text Progress Note Date: 12/20/23 Chief Complaint: Short of breath cough This is a pleasant 38-year-old patient who follows with Dr. Pepe Solomon. 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 Patient does get seasonal allergies. Since fall of last year patient had at least 4-5 bouts of respiratory infections. What she describes as sinus infection waiting nose fever chills nausea vomiting at times. Also her preschool child comes back from school however brings in infection. Recently her child had influenza B. Patient currently has a cough. Which is productive but because of pain in the sides she is a swallowing the same. No fever no chills. Feels tired. She was sent in by her family doctor Dr. Pepe Solomon. December 17: Has a cough. Not able to really expectorate much. Seen by pulmonary Dr. Sol. On Ventolin nebulizer. Nebulized Pulmicort. Perform rest. IV S radha-Medrol. For musculoskeletal pain from coughing on naproxen. Breathing exercises including incentive spirometry discussed. Pulmonary suspecting asthma. Tolerating diet. at the bedside. December 18: Still having coughing spells. Pain with coughing. Continues on medication. Lifestyle changes discussed. Follow-up with pulmonary. Abnormal CT for CT 3 NT suppressor cells. Consult hematology. HIV testing. December 19: X-ray from yesterday showed minimally offset fracture right lateral sixth and seventh rib. Breathing better. Some cough. Remains on IV Solu- Medrol bronchodilators. Patient being visited by family today. Because of abnormal blood counts hematology was consulted. The send of some more blood work.. Active Medications Acetaminophen (Acetaminophen Tab 325 Mg Tab) 650 mg PO Q6HR PRN PRN Reason: Mild Pain or Fever > 100.5 Last Admin: 12/20/23 01:37 Dose: 650 mg Albuterol Sulfate (Albuterol Nebulized 2.5 Mg/3 Ml) 2.5 mg INHALATION RT-QID PRN PRN Reason: Shortness Of Breath Or Wheezing Last Admin: 12/17/23 15:47 Dose: 2.5 mg Albuterol Sulfate (Albuterol Nebulized 2.5 Mg/3 Ml) 2.5 mg INHALATION RT-QID DASH Last Admin: 12/20/23 11:21 Dose: 2.5 mg Budesonide (Budesonide 1 Mg/2 Ml Nebu) 1 mg INHALATION RT-BID [facility] Last Admin: 12/20/23 07:35 Dose: 1 mg Cyclobenzaprine HCl (Cyclobenzaprine 5 Mg Tab) 5 mg PO TID PRN PRN Reason: Muscle Spasm Last Admin: 12/20/23 09:24 Dose: 5 mg Enoxaparin Sodium (Enoxaparin 40 Mg/0.4 Ml Syringe) 40 mg SQ DAILY [facility] Last Admin: 12/20/23 08:32 Dose: Not Given Formoterol Fumarate (Formoterol Fumarate 20 Mcg/2 Ml Nebu) 20 mcg INHALATION RT-BID [facility] Last Admin: 12/20/23 07:35 Dose: 20 mcg Guaifenesin (Guaifenesin 600 Mg Tablet.Er) 600 mg PO QID [facility] Last Admin: 12/20/23 13:08 Dose: 600 mg Guaifenesin/Codeine Phosphate (Guaifenesin-Coden 100-10mg/5ml 10 Ml Cup) 10 ml PO Q6HR PRN PRN Reason: Cough Last Admin: 12/17/23 18:31 Dose: 10 ml Methylprednisolone Sodium Succinate (Methylprednisolone Sod Succi 40 Mg/Ml 1 Ml Vial) 40 mg IV Q8HR [facility] Montelukast Sodium (Montelukast 10 Mg Tab) 10 mg PO HS [facility] Last Admin: 12/19/23 21:25 Dose: 10 mg Naloxone HCl (Naloxone 0.4 Mg/Ml 1 Ml Vial) 0.2 mg IV Q2M PRN PRN Reason: Opioid Reversal Naproxen (Naproxen 250 Mg Tab) 250 mg PO TID [facility] Last Admin: 12/20/23 09:23 Dose: 250 mg Ondansetron HCl (Ondansetron 4 Mg/2 Ml Vial) 4 mg IVP Q8HR PRN PRN Reason: Nausea And Vomiting Pantoprazole Sodium (Pantoprazole 40 Mg Tablet) 40 mg PO AC-BID [facility] Last Admin: 12/20/23 09:24 Dose: 40 mg Social history: Works as a ICU nurse at [employer]. Has 4 children from the age of 5-20. Alcohol occasionally. No smoking. Physical examination: VITAL SIGNS: 98.5, 83, 16, 126 with 72, 98% room air GENERAL: Sitting up EYES: Pupils equal. Conjunctiva jennifer l. HEENT: External appearance of nose and ears normal, oral cavity grossly normal. NECK: JVD not raised; masses not palpable. HEART: First and second heart sounds are normal; no edema. LUNGS: Respiratory rate increased, basal crackles resolved. Decreased wheezing. Patient has some splinting with deep breaths ABDOMEN: Soft, nontender, liver spleen not palpable, no masses palpable. PSYCH: Alert and oriented x3; mood and affect n slightly anxious l. MUSCULOSKELETAL:No Clubbing/cyanosis;muscles-grossly intact INVESTIGATIONS, reviewed in the clinical context: X-ray ribs: Right 6/7 rib fracture laterally : T suppressor cells, total T cells, Perseris percentage CD3 cells, persistent CD4 helper, absolute CD4 helper, percent CD19 cells. Procalcitonin 0.03 December 16, 2023: White count 14 hemoglobin 14.3 platelets 516 neutrophils 11.4 sodium 140 potassium 5.1 BUN 9 creatinine 0.49 Troponin I less than 0.012. CRP 2.3 procalcitonin 0.03 hCG: Not detected Influenza type A, type B, urine Legionella antigen, RSV, COVID-19: Not detected EKG tracing personally reviewed by me-normal sinus rhythm CT chest angio for PE: Negative for PE. Assessment and plan: -Acute tracheobronchitis. Recurrent. Patient seems to multiple viral infection with some secondary bacterial infection less likely given procalcitonin times two 0.03 IV ceftriaxone.-Discontinued Pulmonary following. -Right sixth seventh rib fracture with minimal displacement. Secondary to coughing -Abnormal CD4 CD3 cell count. Consult hematology. This was done for immuno deficiency panel. -Secondary bronchospasm. Consider outpatient workup for asthma Bronchodilators -Musculoskeletal pain from coughing in the chest wall, with splinting with deep breath Naproxen to 250 mg 3 times daily Renal bronchodilator steroids. Increase activity. Follow-up with hematology and pulmonary. Past Medical History Additional Past Medical History / Comment(s): HAD SOME BLOOD AND MUCUS IN STOOL IN AUG/SEP AND ABD. PAIN. Gestational Diabetes, meningitis in 2003 History of Any Multi-Drug Resistant Organisms: None Reported Past Surgical History: No Surgical Hx Reported, Tonsillectomy Additional Past Surgical History / Comment(s): WISDOM TEETH REMOVED UNDER ANES THESIA Past Anesthesia/Blood Transfusion Reactions: No Reported Reaction Past Psychological History: No Psychological Hx Reported Smoking Status: Never smoker Past Alcohol Use History: Occasional Past Drug Use History: None Reported
[2023-12-20] MEDS: methylPREDNISolone SOD SUCCI 40 MG/ML 1 ML VIAL IV SCH (15:22)
--- NOTE | 2023-12-21 12:08 | P.PN ---
Subjective Progress Note Date: 12/21/23 This is a 38-year-old female primarily a patient of Dr. Pepe Solomon, patient has multiple seasonal allergies and it is not unusual for the patient to have symptoms of cough, nasal symptoms, nasal congestion, occasional wheezing in the spring and the fall. However the patient was never diagnosed with asthma. Since last July patient has been dealing with her chronic cough, which has been persistent. Cough is usually dry, nonproductive. Recently one of her kids came down with influenza B infection, patient came down with symptoms of worsening cough, shortness of breath, wheezing, and this has been going on for over [address] Solomon yesterday, and he wanted to admit her because of her symptoms. However the patient declined hospital admission, and multiple prescriptions were called in for the patient including prednisone, albuterol, Levaquin, Zithromax, Phenergan, Tessalon, patient did not get a chance to take any of these medications, continues to do poorly continued to h ave more symptoms of cough wheezing and shortness of breath, hence she came to the ER today. CT angiogram of the chest showed no evidence of pulmonary embolism, however it did show very small tiny negligible bilateral pleural effusions, no evidence of infiltrate on the CT of the chest. Patient was screened for influenza A, influenza B, Legionella, RSV, and COVID-19, all testing came back negative. Patient was today on 12/18/23, patient is noticing definite improvement compared to yesterday, nonetheless she continues to cough and wheeze. On physical examination there is definitely less wheezing compared to yesterday, and less episodes of intermittent coughing. Patient is on maximal therapy for bronchitis and bronchospasm, patient may have underlying bronchial asthma. Today I am recommending that we continue the same medications, her procalcitonin level was normal hence I am stopping antibiotics. Viral screening was negative on this admission The patient is seen today December 19, 2023 in follow-up on the regular medical floor. She is currently sitting up at the bedside. Awake and alert in no acute distress. She continues with a loose cough of clear productive sputum at times, still somewhat bronchospastic and wheezing. She is maintaining good O2 saturations in the 90s on room air. She is still having ongoing issues with right-sided chest wall pain mostly with movement and cough. She remains on albuterol, Pulmicort and Perforomist inhalations, Solu-Medrol and Singulair. Mucinex and Robitussin as needed. Lovenox for DVT prophylaxis. The patient is seen today December 20, 2023 in follow-up on the regular medical floor. She is awake and alert in no acute distress. Sitting up at the bedside. Breathing easier today compared to yesterday. Still having some right sided chest wall pain. X-rays did reveal nondisplaced fracture of right ribs 6 and 7. She is maintaining good O2 saturations in the upper 90s on room air. Afebrile. Hemodynamically stable. Blood glucose 153. She is continued on albuterol, Pulmicort and Perforomist, Solu-Medrol and Singulair. Lovenox for DVT prophylaxis. Continued on Mucinex and Robitussin as needed. The patient is seen today December 21, 2023 in follow-up on the regular medical floor. She is sitting up in bed. Awake and alert in no acute distress. Denies any worsening shortness of breath, cough or congestion. She has been improving daily. She is maintaining good O2 saturations in the 90s on room air. She remains on albuterol, Pulmicort and Perforomist, Solu-Medrol and Singulair. Lovenox for DVT prophylaxis. Continued on Mucinex and Robitussin as needed. Objective - Vital Signs Vital signs: Vital Signs Temp 98.1 F 12/21/23 07:31 Pulse 75 12/21/23 12:01 Resp 16 12/21/23 07:31 BP 123/76 12/21/23 07:31 Pulse Ox 96 12/21/23 07:43 FiO2 Intake & Output 12/20/23 12/21/23 12/21/23 17:59 06:59 18:59 Other: Voiding Method # Voids - Exam GENERAL EXAM: Alert, pleasant 38-year-old female, on room air, in no apparent distress. HEAD: Normocephalic. EYES: Normal reaction of pupils, equal size. NOSE: Clear with pink turbinates. THROAT: No erythema or exudates. NECK: No masses, no JVD. CHEST: No chest wall deformity. Remains tender on the right side. LUNGS: Equal air entry with end expiratory wheeze. CVS: S1 and S2 normal with no audible murmur, regular rhythm. Tachycardic. ABDOMEN: No hepatosplenomegaly, normal bowel sounds, no guarding or rigidity. SPINE: No scoliosis or deformity SKIN: No rashes CENTRAL NERVOUS SYSTEM: No focal deficits, tone is normal in all 4 extremities. EXTREMITIES: There is no peripheral edema. No clubbing, no cyanosis. Frida pheral pulses are intact. - Labs CBC & Chem 7: 12/16/23 16:15 12/16/23 16:15 Assessment and Plan Assessment: Acute tracheobronchitis with reactive bronchospasm, strongly suspect bronchial asthma Musculoskeletal chest wall pain secondary to nondisplaced fractures of the right ribs 6 and 7 Seasonal allergic rhinitis Suspect recent history of influenza B infection, and she had classic viral illness symptoms Plan: The patient was seen and evaluated Medications reviewed Stable and on room air Cleared for discharge from the pulmonary standpoint Continue Symbicort, Singulair, albuterol HFA, prednisone taper Follow-up in our office in 1 week I have personally seen and examined the patient, performed the documentation and the assessment and plan as written. Number of minutes spent on the visit: 10.
[2023-12-21 13:51] VITALS: BP 127/73; PULSE 86; RESP 20; TEMP 98
--- NOTE | 2023-12-21 15:14 | P.DS ---
Providers Date of admission: 12/16/23 19:59 Expected date of discharge: 12/21/23 Attending physician: Jaden Figueroa Consults: 12/17/23 11:28 Consult Physician Routine Consulting Provider: Damien Sol Consult Reason/Comments: cough Do you want consulting provider notified?: Yes 12/19/23 12:03 Consult Physician Routine Consulting Provider: Clayton Walker Consult Reason/Comments: immunology labs abnormal Do you want consulting provider notified?: Yes Primary care physician: Pepe Solomon [facility] Course: Chief Complaint: Short of breath cough This is a pleasant 38-year-old patient who follows with Dr. Pepe Solomon. 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 Patient does get seasonal allergies. Since fall of last year patient had at least 4-5 bouts of respiratory infections. What she describes as sinus infection waiting nose fever chills nausea vomiting at times. Also her preschool child comes back from school however brings in infection. Recently her child had influenza B. Patient currently has a cough. Which is productive but because of pain in the sides she is a swallowing the same. No fever no chills. Feels tired. She was sent in by her family doctor Dr. Pepe Solomon. December 17: Has a cough. Not able to really expectorate much. Seen by pulmonary Dr. Sol. On Ventolin nebulizer. Nebulized Pulmicort. Perform rest. IV Solu-Medrol. For musculoskeletal pain from coughing on naproxen. Breathing exercises including incentive spirometry discussed. Pulmonary suspecting asthma. Tolerating diet. at the bedside. December 18: Still having coughing spells. Pain with coughing. Continues on medication. Lifestyle changes discussed. Follow-up with pulmonary. Abnormal CT for CT 3 NT suppressor cells. Consult hematology. HIV testing. December 19: X-ray from yesterday showed minimally offset fracture right lateral sixth and seventh rib. Breathing better. Some cough. Remains on IV Solu-Me drol bronchodilators. Patient being visited by family today. Because of abnormal blood counts hematology was consulted. The send of some more blood work.. December 20: Patient cleared by Dr. Sol for discharge. He wants patient to be discharged on prednisone 40 mg a day for 5 days and then will decide from there. Symbicort. DuoNeb. Care was discussed with the patient. Questions answered. Patient to continue with breathing exercises including incentive spirometry. Patient follow-up with hematology regarding her CD4 profile and other blood work that was ordered by them. 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 Alcohol occasionally. No smoking. Physical examination: VITAL SIGNS: 98, 86, 20, 127 x 73, 97% room air GENERAL: Sitting up in bed. EYES: Pupils equal. Conjunctiva jennifer l. HEENT: External appearance of nose and ears normal, oral cavity grossly normal. NECK: JVD not raised; masses not palpable. HEART: First and second heart sounds are normal; no edema. LUNGS: Respiratory rate increased, basal crackles resolved. Decreased wheezing. Patient has some splinting with deep breaths ABDOMEN: Soft, nontender, liver spleen not palpable, no masses palpable. PSYCH: Alert and oriented x3; mood and affect n slightly anxious l. MUSCULOSKELETAL:No Clubbing/cyanosis;muscles-grossly intact INVESTIGATIONS, reviewed in the clinical context: X-ray ribs: Right 6/7 rib fracture laterally : T suppressor cells, total T cells, Perseris percentage CD3 cells, persistent CD4 helper, absolute CD4 helper, percent CD19 cells. Procalcitonin 0.03 December 16, 2023: White count 14 hemoglobin 14.3 platelets 516 neutrophils 11.4 sodium 140 potassium 5.1 BUN 9 creatinine 0.49 Troponin I less than 0.012. CRP 2.3 procalcitonin 0.03 hCG: Not detected Influenza type A, type B, urine Legionella antigen, RSV, COVID-19: Not detected EKG tracing personally reviewed by me-normal sinus rhythm CT chest angio for PE: Negative for PE. Assessment and plan: -Acute tracheobronchitis. Recurrent. Patient seems to multiple viral infection with some secondary bacterial infection less likely given procalcitonin times two 0.03 IV ceftriaxone.-Discontinued Pulmonary following. -Right sixth seventh rib fracture with minimal displacement. Secondary to coughing Naproxen. K-pad. -Abnormal CD4 CD3 cell count. Consult hematology. This was done for immunodeficiency panel. Follow-up with hematology -Secondary bronchospasm. Outpatient workup for asthma Bronchodilators -Musculoskeletal pain from coughing in the chest wall, with splinting with deep breath Naproxen to 250 mg 3 times daily Disposition: Home Past Medical History Additional Past Medical History / Comment(s): HAD SOME BLOOD AND MUCUS IN STOOL IN AUG/SEP AND ABD. PAIN. Gestational Diabetes, meningitis in 2003 History of Any Multi-Drug Resistant Organisms: None Reported Past Surgical History: No Surgical Hx Reported, Tonsillectomy Additional Past Surgical History / Comment(s): WISDOM TEETH REMOVED UNDER ANESTHESIA Past Anesthesia/Blood Transfusion Reactions: No Reported Reaction Past Psychological History: No Psychological Hx Reported Smoking Status: Never smoker Past Alcohol Use History: Occasional Past Drug Use History: None Reported Plan - Discharge Summary Discharge Rx Participant: No New Discharge Prescriptions: New Ipratropium-Albuterol Nebulize [Duoneb 0.5 mg-3 mg/3 ml Soln] 3 ml INHALATION QID #120 ml Cyclobenzaprine [Flexeril] 5 mg PO TID PRN #30 tablet PRN Reason: Spasms guaiFENesin [Mucinex] 600 mg PO QID #60 tab Budesonide/Formoterol Fumarate [Symbicort 160-4.5 Mcg Inhaler] 1 puff INHALATION BID #10.2 gm Naproxen [Naprosyn] 250 mg PO BID #30 tab predniSONE 40 mg PO DAILY #60 tab Montelukast [Singulair] 10 mg PO HS #30 tab Continue Benzonatate [Tessalon Perle] 200 mg PO DIRECTED traMADol HCl [Ultram] 50 mg PO DIRECTED Discontinued Ipratropium-Albuterol Nebulize [Duoneb 0.5 mg-3 mg/3 ml Soln] 3 ml INHALATION DIRECTED Levofloxacin [Levaquin] 750 mg PO DIRECTED predniSONE See Taper PO DIRECTED Azithromycin [Zithromax] 500 mg PO DIRECTED Budesonide/Glycopyr/Formoterol [Breztri Aerosphere Inhaler] 2 puff INHALATION DIRECTED Promethazine HCl [Phenergan Syrup] 6.25 mg PO DIRECTED Discharge Medication List Benzonatate [Tessalon Perle] 200 mg PO DIRECTED 12/17/23 [History] traMADol HCl [Ultram] 50 mg PO DIRECTED 12/17/23 [History] Budesonide/Formoterol Fumarate [Symbicort 160-4.5 Mcg Inhaler] 1 puff INHALATION BID #10.2 gm 12/21/23 [Rx] Cyclobenzaprine [Flexeril] 5 mg PO TID PRN #30 tablet 12/21/23 [Rx] Ipratropium-Albuterol Nebulize [Duoneb 0.5 mg-3 mg/3 ml Soln] 3 ml INHALATION QID #120 ml 12/21/23 [Rx] Montelukast [Singulair] 10 mg PO HS #30 tab 12/21/23 [Rx] Naproxen [Naprosyn] 250 mg PO BID #30 tab 12/21/23 [Rx] guaiFENesin [Mucinex] 600 mg PO QID #60 tab 12/21/23 [Rx] predniSONE 40 mg PO DAILY #60 tab 12/21/23 [Rx] Follow up Appointment(s)/Referral(s): Damien Sol MD [STAFF PHYSICIAN] - 1 Week Clayton Walker [STAFF PHYSICIAN] - 1 Week Pepe Solomon MD [Primary Care Provider] - 1-2 days Patient Instructions/Handouts: Naproxen (By mouth), Prednisone (By mouth), Cyclobenzaprine (By mouth), Guaifenesin (By mouth), Ipratropium/Albuterol (By breathing), Montelukast (By mouth), Budesonide/Formoterol (By breathing), Chronic Cough (DC), Shortness of Breath (DC)
[2023-12-22 14:25] LABS: HIV-1 RNA Not detected (Not detected)
[2023-12-23 17:26] LABS: Free Kappa Lt Chain Qnt, Serum 1.08 mg/dL (0.33-1.94); Free Lambda Lt Chain Qnt, Seru 0.97 mg/dL (0.57-2.63)
== END 2023-12-21 15:26 | disposition home or self-care (01) ==
LOC: EC 15:31 → 1SOBS 19:59 → 5NMEDONC 12-18 15:02
PROVIDERS: ADMIT Hospitalist; ATTEND Hospitalist
DX: J20.9 Acute bronchitis, unspecified (principal); M54.50 Low back pain, unspecified; Z11.52 Encounter for screening for COVID-19
CPT/HCPCS: 96376 ×5; 96365; 96366 ×4; 96367; 99285; 36415; 94668 ×3; 94640 ×11; 94760 ×5; 94667; 93005; 87535; 85379; 83880; 80053; 87449; 85652; 86360; 86355; 86357; 82728; 86359; 83540; 83550; 83605; 84484; 85025; 85610; 85730; 86140; 86431; 84703; 82784 ×3; 84165; 86038; 86334; 83883; 84145 ×2; 87636; 71100; 71045; 71275; G0378 ×8; J2920 ×4; J2930 ×4; J0696 ×2; J2270; J1885 ×4; Q9967

== ENCOUNTER → 2024-01-12 | Outpatient (CLI) | payer MEDICAID ==
--- NOTE | 2024-01-12 16:38 | XR ---
EXAMINATION TYPE: XR ribs bilateral DATE OF EXAM: 01/12/2024 2:58 PM CLINICAL INDICATION:Female, 38 years old with history of FRACTURE OF ONE RIB, UNSP SIDE, INIT FOR OPN FX; [facility] COMPARISON: 12/19/2023 TECHNIQUE: XR ribs bilateral; Frontal and oblique views of the ribs with frontal chest radiograph. FINDINGS: Prior right-sided rib fractures of the soft be rib 6 is again appreciated. There is incompl ete osseous fusion. The remainder of the ribs have a normal appearance. No evidence additional of ne w fracture. Overall, the lungs are clear. The cardiac silhouette is normal in size. The remaining o sseous structures are intact. Mild scoliosis changes to the spine with dextroscoliosis apex T9-T10. IMPRESSION: Redemonstration of right-sided rib fractures involving rib 6.
== END | disposition home or self-care (01) ==
LOC: RADXRMAIN 14:32
PROVIDERS: ATTEND Family Medicine
DX: S22.41XA Multiple fractures of ribs, right side, initial encounter for closed fracture (principal); X58.XXXA Exposure to other specified factors, initial encounter
CPT/HCPCS: 71110

== ENCOUNTER → 2024-04-20 | Outpatient (CLI) | payer MEDICAID ==
[2024-04-20 08:43] LABS: Basophils % (A) 1 %; Eosinophils # (A) 0.1 k/uL (0-0.7); Eosinophils % (A) 2 %; HCT 46.6 % (34.0-46.0); Lymphocytes # (A) 1.7 k/uL (1.0-4.8); Lymphocytes % (A) 31 %; MCH 29.8 pg (25.0-35.0); MCHC 32.3 g/dL (31.0-37.0); MCV 92.3 fL (80.0-100.0); Mean Platelet Volume 6.4; Monocytes # (A) 0.4 k/uL (0-1.0); Monocytes % (A) 7 %; Neutrophils # (A) 3.3 k/uL (1.3-7.7); Neutrophils % (A) 59 %; Platelet Count 408 k/uL (150-450); RBC 5.05 m/uL (3.80-5.40); RDW 12.1 % (11.5-15.5); WBC 5.6 k/uL (3.8-10.6)
[2024-04-20 09:00] LABS: ALT 25 U/L (4-34); AST 26 U/L (14-36); African American GFR (CKD) >90 (>60 ml/min/1.73 sqM); Albumin 4.7 g/dL (3.5-5.0); Alkaline Phosphatase 53 U/L (38-126); Anion Gap 6 mmol/L; Blood Urea Nitrogen 15 mg/dL (7-17); Calcium 9.7 mg/dL (8.4-10.2); Carbon Dioxide 28 mmol/L (22-30); Chloride 105 mmol/L (98-107); Glucose 96 mg/dL (74-99); Non-African American GFR(CKD) >90 (>60 ml/min/1.73 sqM); Potassium 4.1 mmol/L (3.5-5.1); Sodium 139 mmol/L (137-145); Total Bilirubin 0.4 mg/dL (0.2-1.3); Total Protein 7.1 g/dL (6.3-8.2); Uric Acid 5.3 mg/dL (3.7-7.4)
[2024-04-20 10:09] LABS: T4, Free (Free Thyroxine) 1.13 ng/dL (0.78-2.19)
[2024-04-20 15:52] LABS: Appearance,Urine Clear (Clear); Bilirubin,Urine Negative (Negative); Blood,Urine Negative (Negative); Color,Urine Yellow (Yellow); Ketones,Urine Trace (Negative); Nitrite,Urine Negative (Negative); Specific Gravity,Urine 1.025 (1.001-1.030)
[2024-04-20 17:31] LABS: Insulin Level 6.4 mIU/mL (3.0-25.0)
[2024-04-20 17:32] LABS: Immunoglobulin E 8.73 IU/mL (0.00-114.00)
[2024-04-20 17:43] LABS: Homocysteine 9.04 UMOL/L (4.00-14.00)
[2024-04-20 18:15] LABS: Erythrocyte Sedimentation Rate 2 mm/Hr (0-20)
[2024-04-20 18:39] LABS: % Iron Saturation 18.71 (12.00-45.00); C Reactive Protein, High Sens 0.835 mg/L (0.000-3.000); Chol/HDL Ratio 3.18 Ratio; Ferritin 56.7 ng/mL (10.0-291.0); Iron 81 UG/DL (50-170); LDL Cholesterol,Calculated 128.2 mg/dL (0.0-131.0); Total Iron Binding Capacity 433 UG/DL (228-460)
[2024-04-20 18:45] LABS: Thyroid Peroxidase Antibodies <9.0 U/mL (0.0-33.0)
[2024-04-20 19:48] LABS: Insulin Level 30.2 mIU/mL (3.0-25.0)
[2024-04-20 21:11] LABS: Codfish IgE <0.10 kU/L; Egg White IgE <0.10 kU/L
[2024-04-20 21:12] LABS: Peanut IgE <0.10 kU/L; Shrimp IgE <0.10 kU/L; Soybean IgE <0.10 kU/L
[2024-04-21 12:38] LABS: Barley IgE <0.10 kU/L (<0.10); Barley IgE Class CLASS 0; Beef IgE <0.10 kU/L (<0.10); Beef IgE Class CLASS 0; Carrot IgE <0.10 kU/L (<0.10); Carrot IgE Class CLASS 0; Chicken IgE Class CLASS 0; Crab IgE <0.10 kU/L (<0.10); Crab IgE Class CLASS 0; Lettuce IgE Class CLASS 0; Oat IgE Class CLASS 0; Pork IgE Class CLASS 0; Potato IgE <0.10 kU/L (<0.10); Potato IgE Class CLASS 0; Rye (Food) IgE <0.10 kU/L (<0.10); Rye (Food) IgE Class CLASS 0; Tuna IgE <0.10 kU/L (<0.10); Tuna IgE Class CLASS 0
--- NOTE | 2024-04-25 16:38 | BD ---
EXAMINATION TYPE: Axial Bone Density DATE OF EXAM: 04/20/2024 CLINICAL HISTORY: 38 years old Female. ICD-10 CODE: M85.88 OTH DISRD OF BONE DENSITY AND STRUCTURE, OT : LMP... 04/08/2024 Height: 63.4 Weight: 181 FRAX RISK QUESTIONS: Glucocorticoids (More than 3mos): yes, for illness and asthma, chronic bronchitis (Ex: prednisone, prednisolone, methylprednisolone, dexamethasone, and hydrocortisone). History of Fracture in Adulthood: yes 3. Menopause before 45: na... RISK FACTORS HISTORY OF: hx rib fxs this yr from coughing MEDICATIONS: vit d and calcium in the past, steroids for lungs, Singulair, EXAM MEASUREMENTS: Bone mineral densitometry was performed using the [employer] System. Bone mineral density as measured about the Lumbar spine is: ----- L1-L4(G/cm2): 1.243 T Score Values are as follows: ----- L1: -0.1 ----- L2: 0.1 ----- L3: 1.2 ----- L4: 0.6 ----- L1-L4: 0.5 Z Score Values are as follows: ----- L1: -0.7 ----- L2: -0.4 ----- L3: 0.6 ----- L4: 0.1 ----- L1-L4: 0.0 Bone mineral density is the first dexa study for this patient, baseline. Bone mineral density about the R hip (g/cm2): 1.062 Bone mineral density about the L hip (g/cm2): 1.156 T Score values are as follows: -----R Neck: 0.7 -----L Neck: 0.6 -----R Total: 0.4 -----L Total: 1.2 Z Score values are as follows: -----R Neck: 0.7 -----L Neck: 0.6 -----R Total: 0.2 -----L Total: 1.0 Bone mineral density is a baseline study for this patient. FRAX%s: no frax available....not in age range for percentage.. IMPRESSION: Normal (Values between +1 and -1 indicate normal bone mass). Consider repeating this study in 5 year s or sooner if there is some new clinical indication. NOTE: T-SCORE=SD OF THE YOUNG ADULT MEAN.
== END | disposition home or self-care (01) ==
LOC: RADBDWWP 06:54
PROVIDERS: ATTEND Family Medicine
DX: M85.88 Other specified disorders of bone density and structure, other site (principal)
CPT/HCPCS: 77080; 80053; 80061; 81003; 82306; 82607; 82728; 82746; 82785; 82947; 83036; 83090; 83525; 83540; 83550; 83735; 84432; 84439; 84443; 84481; 84482; 84550; 84630; 85025; 85652; 86003; 86038; 86141; 86376; 86800

== ENCOUNTER → 2024-11-08 | Outpatient (CLI) | payer MEDICAID ==
[2024-11-08 14:40] LABS: Influenza A Detected (Not Detectd); Influenza B Not Detected (Not Detectd); RSV Not Detected (Not Detectd)
== END | disposition home or self-care (01) ==
LOC: LABWHC1 13:34
PROVIDERS: ATTEND Internal Medicine
DX: Z20.822 Contact with and (suspected) exposure to COVID-19 (principal); J11.1 Influenza due to unidentified influenza virus with other respiratory manifestations
CPT/HCPCS: 87636